=== PATIENT | male | born 1955 | race Caucasian/White ===

== ENCOUNTER → 2018-06-20 10:16 | Outpatient (CLI) | payer BC, SELFPAY ==
[2018-06-15 12:40] VITALS: BMI 39.7
--- NOTE | 2018-06-20 10:19 | US_ITS ---
STUDY: SUPERFICIAL ULTRASOUND - BILATERAL FLANKS. REASON FOR EXAM: Male, 63 years old. Masses. TECHNIQUE: A superficial ultrasound was performed with real-time and static mott-scale imaging. COMPARISON: None. FINDINGS: Real-time sonographic imaging of the bilateral flanks demonstrates multiple subcutaneous mildly echogenic masses in the appearance of sebaceous cysts. The largest on the right measures 1 x 1 x 0.4 cm. The largest on the left measures 0.5 x 0.9 x 0.4 cm. US/Other Unlisted US Procedure IMPRESSION: Multiple subcutaneous echogenic masses most suspicious for sebaceous cyst. Electronically Signed: Jeffrey Wilhelm DO at 22:34 EST Tel [phone], Service support ,
--- OUTSIDE RECORDS SUMMARY | 2018-08-06 10:32 | XMS RPT_ITS ---
:1955 Author Organization OHIP Support Name Relationship Address Phone [employer] Unavailable [phone] + [place] [address] WINDY CLARK Unavailable [address] + [place] [address] [place] Unavailable [address] + [place] [phone] [employer] Unavailable [address] + [place] [phone] WINDY CLARK Unavailable [address] + [place] [address] [place] Unavailable [address] + [place] [phone] [employer] Unavailable [address] + [place] [address] WINDY CLARK Unavailable [address] + [place] [phone] [place] Unavailable [address] + [place] [address] [employer] Unavailable [address] + [place] [address] WINDY CLARK Unavailable [address] + [place] [address] [place] Unavailable [address] + [place] [address] [employer] Unavailable [address] + [place] [address] WINDY CLARK Unavailable [address] + [place] [address] [place] Unavailable [address] + [place] [phone] [employer] Unavailable [address] + [place] [address] [employer] Un[address] + [place] [address] [place] Unavailable [address] + [place] [address] WINDY CLARK Unavailable [address] + [place] [address] NOT GIVEN Unavailable Unavailable Unavailable [place] Unavailable [address] Unavailable [place], [place] [phone] WINDY CLARK Unavailable [address] + [place] [address] NOT GIVEN Unavailable Unavailable Unavailable [place] Unavailable [address] Unavailable [place], [place] [id number] Care Team Providers Name Role Phone ERICA BHAKTA Admitting Unavailable VACCERICA MCLEOD Attending Unavailable ERICA BHAKTA Primary Care Unavailable ANA GERARDO MD Consulting Unavailable PROVIDER, UNKNOWN Consulting Unavailable PROVIDER, UNKNOWN Consulting Unavailable PROVIDER, UNKNOWN Consulting Unavailable DEMETRIUS, DR MOHSEN Hernandez Admitting Unavailable ROMO, DR MOHSEN Hernandez Attending Unavailable VELAZQUEZ, MAHI J Referring Unavailable ROMO, DR MOHSEN Hernandez Primary Care Unavailable VELAZQUEZ, MAHI J Consulting Unavailable PROVIDER, UNKNOWN Consulting Unavailable CalJacky vigil Attending Unavailable Calabretta, Jacky Referring Unavailable VELAZQUEZ, MAHI Primary Care Unavailable Calabrkenzie, Jacky Attending Unavailable Calabretta, Jacky Referring Unavailable VELAZQUEZ, MAHI Primary Care Unavailable Calabrkenize Jacky Consulting Unavailable Calabrkenzie, Jacky Attending Unavailable VELAZQUEZ, MAHI Referring Unavailable Calabretta, Jacky Attending Unavailable Calabretta, Jacky Referring Unavailable VELAZQUEZ, MAHI Primary Care Unavailable Calabretta, Jacky Attending Unavailable VELAZQUEZ, MAHI Referring Unavailable MoodispawJeremiah Attending Unavailable Calabretta, Jacky Referring Unavailable PROBLEMS PROBLEMS DATE TYPE CONDITION / CODE ATTENDING STATUS SOURCE 07/06/2018 Unknown K42.9 - Umbilical Calabretta, Active Teresa hernia without Jacky [facility] obstruction or Hospital gangrene / Repository K42.9(ICD-10) 07/19/2018 Unknown Z01.810 - Encounter Moodispaw, Active Teresa for preprocedural [facility] examination / Repository Z01.810(ICD-10) 06/15/2018 Unknown R19.00 - Jolene, Active Bandana Intra-abdominal and [facility] pelvic swelling, Hospital mass and lump, Repository unspecified site / R19.00(ICD-10) 06/15/2018 Unknown R22.9 - Localized Calabretta, Active Bandana swelling, mass and [facility] lump, unspecified / Hospital R22.9(ICD-10) Repository 09/28/2017 Admitting Pain in right leg / VACCARIELLO, Active Dandy Pomerene Diagnosis W32159(ICD-10) [facility] Repository 09/28/2017 Principle Pain in right leg / VACCARIELLO, Active Dandy Pomerene Diagnosis W77548(ICD-10) [facility] Repository PROCEDURES PROCEDURES No Procedure Records FoundRESULTS RESULTS SURGERY VISIT REPORT Observed: 07/13/2018 Status: F Source: [place] 2:39 PM [facility] REPOSITORY [facility] [address] [place] [address]. [address] [place] [address] OFFICE VISIT Date of Service: 07/13/18 MR#: [id number] Acct: [id number] Name: CHARLENE LAKE Rep #: [id number] : 1955 Provider: Jacky Fernández MD Age/Sex: 63/M Location: [facility] Status: Signed Intake Intake Visit Reasons: 1 WK F/U Hernia Surgery AND Lipoma removal 07/06 Charge Lpn Required: No Is patient in pain?: No Allergies No Known Allergies Allergy (Verified 07/13/18 14:20) Medications aspirin 81 mg tablet,delayed release 81 mg PO DAILY 06/15/18 [History Confirmed 07/13/18] omeprazole magnesium 20 mg tablet,delayed release 20 mg PO DAILY 06/15/18 [History Confirmed 07/13/18] L.acidoph,Paracasei, B.lactis [Probiotic] 1 ea PO BID 06/29/18 [History Confirmed 07/13/18] Subjective Details: Patient is doing well after surgery. He has no pain at his umbilical site or his flank excision sites Objective Details: There is no bulging at the umbilicus. The patient has ecchymosis at all of his incisions with no erythema or drainage from the incisions. Assessment AND Plan Problems 1. 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 Umbilical hernia without obstruction or gangrene K42.9 Plan 1. Patient's umbilical hernia appears to be resolved with no bulging. Incisions are healing well. The patient's flank lesions came back as lipomas. The patient will return after he is fully healed if any of his remaining lipomas are bothering him and these will be excised in the office. 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 Umbilical hernia without obstruction or gangrene K42.9 07/13/18 1439 <Electronically signed by Jacky Fernández MD> Date Jacky Fernández MD Cosign Signature: Date (if applicable) CC: SHALINI VELAZQUEZ 12 LEAD ELECTROCARDIOGRAM Observed: 07/10/2018 Status: F Source: [place] 1:52 PM [facility] REPOSITORY [facility] Cardiovascular Services [address] [place] [address] 12 Lead EKG 07/06/18 0609 MR#: [id number] Acct: [id number] Name: CHARLENE LAKE Rep #: [id number] : 1955 63 From: Jeremiah Salazar MD Attending Dr: Jacky Fernández MD Status: [facility] Ordering Dr: Babar العراقي MD Date: 07/06/18 Location: [facility] Sex: M C Admitted: Test Reason : PRE OP Blood Pressure : / mmHG Vent. Rate : 065 BPM Atrial Rate : 065 BPM P-R Int : 188 ms QRS Dur : 082 ms QT Int : 384 ms P-R-T Axes : -05 017 023 degrees QTc Int : 399 ms Normal sinus rhythm Normal ECG Confirmed by MARIE TOMLIN, JEREMIAH ([id number]), editorial project manager JUD ORTIZ ([id number]) on 07/10/2018 1:51:37 PM Referred By: Jacky Fernández Confirmed By:JEREMIAH SALAZAR MD 07/10/18 1351 Date Jeremiah Salazar MD CC: SHALINI VELAZQUEZ; Jacky Fernández MD; Babar العراقي MD Signed DISCHARGE INSTRUCTION Observed: 07/06/2018 Status: F Source: [place] 9:06 AM [facility] REPOSITORY [facility] Medical Records Department [address] [place] [address] [place] [address] Instructions for Home/Discharge Instructions 07/06/18 0904 MR#: [id number] Acct: [id number] Name: CHARLENE LAKE Rep #: [id number] : 1955 63 From: Jacky Fernández MD PCP: SHALINI ADLER Status: REG [place] Discharge Diet: Light diet - advance as tolerated Discharge Activity: Return to Normal Activity, May Not Drive - for 2-3 days or while taking narcotic pain meds., May Shower - with the bandage in place 1-2 days after surgery. Lifting Restrictions: 20 pounds for 6 weeks. Additional Activity Instructions:: Climbing stairs is fine, walking is encouraged. Sitting in bed may be uncomfortable. Sitting up using your lateral muscles (sitting up sideways) is usually more comfortable. Do not drive, work heavy equipment of sign legal documents for 24 hours. Pain medications may cause nausea, you should typically eat light foods as you take your pain medications. Pain medications may also cause constipation. If you have difficulty with this, discuss with your doctor. Call your doctor if your incision/area has: Continuous Slow Oozing, Sudden Increased Bleeding, Increased Pain/ Swelling, Increased Redness, Foul Smelling Discharge Call your doctor if you observe: Fever of 101 or Higher Suture Line Care: Avoid Pulling/Pushing, Avoid Pinching/Bending Change Dressing in (Days):: 2 - Leave steri-strips for 1 week. May protect with a guaze bandaid. Cleanse incision/area with: Keep Dressing Clean AND Dry Additional Instructions: Resume aspirin Tuesday Allergies/Adverse Reactions: Allergies No Known Allergies Allergy (Unverified 06/29/18 13:03) Medications to take at Discharge aspirin 81 mg tablet,delayed release 81 mg PO DAILY 06/15/18 omeprazole magnesium 20 mg tablet,delayed release 20 mg PO DAILY 06/15/18 L.acidoph,Paracasei, B.lactis [Probiotic] 1 each PO BID 06/29/18 Oxycodone HCl/Acetaminophen [Percocet 5/325] 1 - 2 tablet PO Q4H PRN PRN 7 Days #30 tablet 07/06/18 The following prescriptions were given: Oxycodone HCl/Acetaminophen [Percocet 5/325] 1 - 2 tablet PO Q4H PRN PRN 7 Days #30 tablet PRN Reason: Pain Primary Care Physician: aMhi Velazquez PA [Primary Care Provider] - Test Results: Test results from this visit will be discussed in further detail at your follow-up appointment, if applicable. 07/06/18905 <Electronically signed by Jacky Fernández MD> Date Jacky Fernández MD CC: SHALINI VELAZQUEZ Signed OPERATIVE REPORT Observed: 07/06/2018 Status: F Source: [place] 9:03 AM [facility] REPOSITORY [facility] Medical Records Department [address] [place] [address] Operative Report 07/06/18 0856 MR#: [id number] Acct: [id number] Name: CHARLENE LAKE Rep #: [id number] : 1955 63 From: Jacky Fernández MD PCP: SHALINI ADLER Status: REG [facility] Y Location: [place] [address]- Problem List (1) Flank lipoma Status: Acute (2) Umbilical hernia without obstruction or gangrene Status: Acute Report of Operation Date of Procedure: 07/06/18 Pre-Operative Diagnosis: 1. Umbilical hernia. 2. Right flank mass with pain. 3. 2 left flank masses with pain Post-Operative Diagnosis: 1. Umbilical hernia. 2. Right flank lipoma. 3. Left flank lipoma x2 Surgery/Procedure Performed:: 1. Umbilical hernia repair with mesh. 2. Right flank lipoma excision. 3. 2 left flank lipoma excisions Description of Surgical Findings:: Patient had a right flank lipoma which was 1 cm in diameter. Patient had 2 left flank lipomas. One was 1.5 cm diameter in its largest dimension the other one was 1 cm in its largest dimension. Specimen's removed: 1. Right flank mass. 2. 2 left flank masses Description of Procedure: The patient was brought back to the operating room and general anesthesia was induced. The patient's umbilicus was prepped in the usual sterile fashion. Next a curvilinear incision marking was made inferior to his umbilicus and this area was anesthetized with Marcaine. Next an incision was made and this was deepened to the umbilical stalk. A Gail clamp was used to surround the umbilical stalk and this was sharply excised from the underlying hernia sac. The hernia sac was entered and dissected free from the surrounding fascia. Hernia sac was reduced. The preperitoneal plane was identified and developed. This was developed circumferentially bluntly the index finger. Next the peritoneal defect was inspected and closed with a running 3-0 Vicryl suture. The hernia sac was reduced and next the preperitoneal space was inspected and there was good hemostasis with no bleeding. The defect was measured and a 6.[address] mesh was selected. This was inserted into the preperitoneal space and the tails were sutured to the anterior fascia using 0 PDS sutures. Laterally the mesh was tacked to the anterior fascia using 0 PDS sutures as well. The fascia was then reapproximated with 0 PDS sutures in a horizontal fashion. The area was irrigated and suctioned dry. The umbilical stalk was re-sutured to the anterior fascia using 2 3-0 Vicryl sutures. The incision was then reapproximated with interrupted 3-0 Vicryl sutures in a running subcuticular 4-0 Monocryl suture. Steri-Strips and a cotton ball and bandage were then applied. The patient tolerated this portion well. Next attention was paid to his right flank. This area was inspected with the ultrasound and his lesion was identified under ultrasound and a marking was made. The area was then prepped and this incision site was anesthetized Marcaine. Next an incision was made and this was deepened to the subcutaneous tissue. A small lipoma was identified and excised sharply. The incision was closed with interrupted 3-0 Vicryl suture and Steri-Strips. Attention was then paid to the left flank. The patient had 2 masses in the left flank that were bothering him. Ultrasound was used to localize both of these lesions. First the most lateral lesion was identified and incision site was marked and anesthetized with Marcaine. An incision was then made and this was deepened to subcutaneous tissue. A large lipoma was identified and removed sharply. This measured about 1.5 cm. Hemostasis was obtained with electrocautery and the incision was closed with 2 interrupted 3-0 Vicryl sutures as well as Steri-Strips and a bandage. Next attention was taken to the more anterior lesion. In the same fashion it was identified and an area was anesthetized and an incision was made and a small lipoma measuring 1 cm in diameter was removed sharply. Hemostasis was obtained electrocautery and the incision was closed with 2 interrupted 3-0 Vicryl sutures as well as Steri-Strips and bandages. The patient tolerated all these procedures well and was taken back to PACU in stable condition. Grafts/Implants Used: 6.4 cm ventralex mesh 07/06/18902 <Electronically signed by Jacky Fernández MD> Date Jacky Fernández MD CC: SHALINI VELAZQUEZ; Jacky Fernández MD Signed CYST Observed: 07/06/2018 Status: F Source: [place] 7:30 AM [facility] REPOSITORY Patient: CHARLENE LAKE : 1955 (63/M) Acct Num: [id number] Phys: Jacky Fernández MD Unit Num: [id number] Loc: [facility] Specimen: [id number] Received: 07/06/18 - 1131 Spec Type: Cyst TISSUES 1 TISSUES: A. CYST B. CYST GROSS DESCRIPTION A - Received in fixative is one container labeled with the patient's name and designated right flank. The specimen consists of three irregular fragments of yellow fatty tissue that in aggregate measure 2.5 x 1 x 0.3 cm. The specimen is totally submitted in one cassette. B - Received in fixative is one container labeled with the patient's name and designated left flank. The specimen consists of multiple irregular fragments of craft-yellow fibrofatty tissue that in aggregate measure 2.5 x 2 x 0.3 cm. The specimen is sectioned and totally submitted in one cassette. / AM:nuha 07/06/18 TC:1 CPT: 35418 x2 HEADER OPERATION: Umbilical hernia repair with mesh PRE-OP DIAGNOSIS: Umbilical hernia without obstruction and gangrene TISSUE SUBMITTED: A - Sebaceous cyst right flank, B - Sebaceous cyst left flank MICROSCOPIC DESCRIPTION Slides are reviewed. MICROSCOPIC DIAGNOSIS A. Sebaceous cyst of right flank, excision: Mature adipose tissue consistent with angiolipoma. B. Sebaceous cyst of left flank, excision: Mature adipose tissue consistent with angiolipoma. AM:nuha 07/07/18 Signed Jose Bello, DO 07/07/18 <signature on file> Performed By: #### PCYST #### [facility] [address] [place], [address] BASIC METABOLIC Collected: 07/06/2018 Status: F Source: [place] PROFILE ([facility]) 6:04 AM [facility] REPOSITORY Order Comment: Reason for Laboratory Test PREOP TYPE CODE TESTS RESULT OUT OF RANGE REFERENCE UNITS LAB L501.0100 74-106 mg/dL High GLU 122 Result Comment: Fasting Glucose result from 100 to 125 mg/dL suggests IMPAIRED HOMEOSTASIS per A.D.A. criteria. Please note revised GLUCOSE reference range effective 2017. LAB L501.1000 7-18 mg/dL Normal BUN 16 LAB L501.1100 0.70-1.30 mg/dL Low CREAT,SERUM 0.59 Result Comment: The validity of the calculated GFR AND GFRAA in patients over 70 years has not been determined. Clinical correlation is essential. LAB L501.1110 >60 mL/min Normal EST GFR 147 Result Comment: Non- GFR Calc LAB L501.1115 >60 mL/min Normal EST GFR - AA 178 Result Comment: GFR Calc LAB L501.1255 ml/min Normal Estimated CRCL 117.15 LAB L501.1300 10-20 RATIO High BUN/CRE 26.9 LAB L501.2200 8.5-10 mg/dL Low .1 CA 8.3 LAB L501.5300 136-14 mmol/L 5 NA Normal 139 LAB L501.5600 3.5-5. mmol/L 1 K Normal 3.9 LAB L501.5900 98-107 mmol/L CL Normal 107 LAB L501.6100 21.0-3 mmol/L 2.0 CO2 Normal 25.0 LAB L501.6200 5-15 GAP Normal 7 Performed By: #### L500.2500 #### [facility] [address] [place], [place], [id number] CBC-COMPLETE BLOOD CNT Collected: 07/06/2018 Status: F Source: [place] NO DIFF 6:04 AM [facility] REPOSITORY Order Comment: Reason for Laboratory Test PREOP TYPE CODE TESTS RESULT OUT OF RANGE REFERENCE UNITS LAB L100.1000 4.4-11.0 K/mm3 Low WBC 4.2 LAB L100.1200 4.6-6.2 M/mm3 Low RBC 4.59 LAB L100.1300 13.0-16.5 g/dl Normal HGB 14.7 LAB L100.1400 40-54 % Normal HCT 44.0 LAB L100.1500 80-94 fL High MCV 95.9 LAB L100.1600 27.0-32.0 pg Normal MCH 32.0 LAB L100.1700 32-36 g/gl Normal MCHC 33.4 LAB L100.1810 11.6-14.6 % Normal RDW CV 12.4 LAB L100.1820 35.1-43.9 fl Normal RDW SD 42.6 LAB L100.1900 150-450 K/mm3 Normal PLT 181 LAB L100.2000 6.2-12.0 fl Normal MPV 10.1 Performed By: #### L100.0500 #### [facility] [address] [place], [place], [id number] OTHER UNLISTED US Observed: 06/20/2018 Status: F Source: [place] PROCEDURE 10:19 AM [facility] REPOSITORY [facility] Imaging Services [address] [place] [address] Other Unlisted US Procedure MR#: [id number] Acct: [id number] Name: CHARLENE LAKE Rep #: [id number] : 1955 M 63 From: Jeffrey Wilhelm DO PCP: SHALINI ADLER Status: REG CLI Study: Other Unlisted US Procedure Date of Exam: 06/20/18 Exam# [id number] Ordering Dr: Jacky Fernández MD STUDY: SUPERFICIAL ULTRASOUND - BILATERAL FLANKS. REASON FOR EXAM: Male, 63 years old. Masses. TECHNIQUE: A superficial ultrasound was performed with real- time and static mott-scale imaging. COMPARISON: None. FINDINGS: Real-time sonographic imaging of the bilateral flanks demonstrates multiple subcutaneous mildly echogenic masses in the appearance of sebaceous cysts. The largest on the right measures 1 x 1 x 0.4 cm. The largest on the left measures 0.5 x 0.9 x 0.4 cm. US/Other Unlisted US Procedure IMPRESSION: Multiple subcutaneous echogenic masses most suspicious for sebaceous cyst. Electronically Signed: Jeffrey Wilhelm DO at 22:34 EST Tel [phone], Service support , CC: SHALINI VELAZQUEZ; Jacky Fernández MD Window Shade Installer: Signed SURGERY VISIT REPORT Observed: 06/15/2018 Status: F Source: [place] 1:16 PM [facility] REPOSITORY [facility] [address] [place] [address] OFFICE VISIT Date of Service: 06/15/18 MR#: [id number] Acct: [id number] Name: CHARLENE LAKE Rep #: [id number] : 1955 Provider: Jacky Fernández MD Age/Sex: 63/M Location: [facility] Status: Signed Intake Vital Signs06/15/18 Height 5 ft 6 in Intake Visit Reasons: Umbilical Hernia and multi skin nodules Charge Lpn Required: No Accompanied by: Family / Other Is patient in pain?: No Allergies No Known Allergies Allergy (Unverified 06/15/18 12:35) Medications aspirin 81 mg tablet,delayed release 81 mg PO DAILY 06/15/18 [History Confirmed 06/15/18] omeprazole magnesium 20 mg tablet,delayed release 20 mg PO DAILY 06/15/18 [History Confirmed 06/15/18] PFSH Medical History Acid reflux (Acute) history of broken jaw (Acute) Surgical History History of tonsillectomy (Acute) History of varicose vein ligation and stripping (Acute) Family History Mother Diabetes Hypertension Father ulcers Social History Smoking Status: Former smoker how long ago did patient quit smokin years alcohol intake: current alcohol intake frequency: a few times a week Alcohol type: wine substance use type: does not use HPI HPI HPI: CHARLENE LAKE, is a 63 M who presents to the office today for umbilical hernia and subcutaneous nodules. The patient reports he has had an umbilical hernia for years and it is growing. It is becoming more tender. He denies any nausea vomiting or inability to go to the bathroom. The patient also notes that he has subcutaneous nodules that are very painful. These nodules are on bilateral flanks and in a linear fashion. ROS General General: No weight change or fatigue Skin Additional Details: Subcutaneous lesions in bilateral flanks Cardio Cardiovascular: No murmur, pacemaker, heart disease, atrial fibrillation, high blood pressure, heart attack, heart stent, palpitations, shortness of breat with exertion or chest pain Psych Psychiatric: No depression or anxiety Resp Respiratory: No shortness of breath, No sleep apnea, No cough, No COPD, No asthma, No emphysema, No wheezing Gastro Gastrointestinal: No abdominal pain, No nausea or vomiting, No diarrhea, No constipation, No blood in stool, No acid reflux, No hemorrhoids, No ulcers, No gallbladder problem, No black,tarry stools Trevin Hematologic: Yes blood thinners, Yes blood clots Exam Const General: cooperative Orientation: alert, oriented x3 Resp Effort AND Inspection: normal respiratory effort Auscultation: clear to auscultation bilaterally Cardio Rate: regular rate Rhythm: regular rhythm Heart Sounds: no murmurs GI Inspection: non-distended Palpation: soft, nontender, hernia umbilical Skin Other: Patient has subcutaneous lesions which are in a linear fashion in the subcostal area of both flanks. These lesions vary in size but they are very tender. There are no skin changes. These appear minimally mobile. Assessment AND Plan 1. Umbilical hernia without obstruction and without gangrene K42.9 Plan 1. The patient has a large umbilical hernia which is reducible. It is tender to the touch but there are no skin changes. 2. I explained hernia repair with mesh. I explained the risks including but not limited to bleeding, infection, injury to underlying organs. I also explained that he would have 4-6 weeks of no lifting over 20 pounds after surgery and the risk of recurrence. I have asked him to stop his aspirin 5 days prior to procedure. 2. Multiple skin nodules R22.9 Plan 1. The patient has several nodules in the subcutaneous tissue which vary in size and are not very easily mobile. They are all extremely tender to the touch. There are no skin changes in the overlying skin. I am unsure that these are lipomas as they are in a linear fashion and bilateral. There are no other lipomas except for these 2 straight lines bilaterally. 2. I will obtain an ultrasound of these areas to better differentiate the soft tissue masses. If they appear to be simple lipomas I will remove his largest ones during his hernia repair. If they appear to be anything more complex I would refer him to a plastic surgeon for soft tissue resection. There is a chance these may be schwannomas or neuromas. There is also chance of soft tissue tumor. Jacky Fernández MD Pager: [facility] [address] [place] [address], [address] [place] [address] Office: Plan Detail Other Orders Orders: Coding Level of Care Code Off vis,new,level 3 Diagnoses Umbilical hernia without obstruction and without gangrene K42.9 Obstruction and gangrene presence: without obstruction or gangrene Multiple skin nodules R22.9 06/15/18 1316 <Electronically signed by Jacky Fernández MD> Date Jacky Ramirez Signature: Date (if applicable) CC: SHALINI VELAZQUEZ EMERGENCY REPORT Observed: 10/13/2017 Status: F [facility] ROOM REPORT NAME ACCOUNT SEX AGE ADMIT DISCHARGE PT MED. RECORD# NUMBER DATE DATE TYPE CHARLENE LAKE [id number] M 62 10/02/17 10/02/17 3 E [address] ROOM: ER DATE OF : 1955 DICTATING PHYSICIAN: Mohsen Romo CHIEF COMPLAINT: Leg pain. HISTORY OF PRESENT ILLNESS: The patient states that he has been having some pain to his right lower leg over the past perhaps 2 to 3 weeks. He states that it was worse when he would get up and walk and move on it. He did not recall any specific injury or trauma, though does recall that it seemed to start after he slipped on some ice several weeks ago. It has been gradually getting slightly more bothersome. He saw Dr. Bhakta in the office this past week who did a blood test to rule out blood clot. He states that was okay. This morning as he was stepping to climb up into a van, he had a sudden onset of severe pain to his leg. He felt somewhat of a pop or a crack to his lower leg. He has really been unable to weight bear since because of pain. He has not noticed any bruising or swelling. No numbness or tingling. It seems to be diffuse to the lower leg, somewhat radiating into his foot. No neurologic symptoms. He did not fall on it or have any direct trauma to it this morning. PAST MEDICAL HISTORY: Negative for other medical problems. He does have a history of DVT in the past. PAST SURGICAL HISTORY: No previous surgeries other than kidney stone removal. MEDICATIONS: He takes no medications regularly. He has been taking ibuprofen quite frequently for the pain. SOCIAL HISTORY: The patient is Holiness. He lives at home. He does not smoke or drink alcohol. PHYSICAL EXAMINATION: This is a 62-year-old mildly obese male who is alert and appropriate. He is pleasant and does not appear toxic or in acute distress. His skin is pink, warm and dry. Vital signs are essentially all normal. Blood pressure is mildly elevated at 140/92. Exam is focused to the right lower extremity. Gross exam to the left reveals no redness, bruising or swelling. He is able to move the leg diffusely. He does not seem to have any tenderness with palpation in any muscular areas. Achilles tendon is intact and nontender. Palpation over the tibia diffusely does reveal a fairly significant bony area of tenderness to the mid distal tibia, though there is no redness or bruising noted. Good peripheral pulses. Good capillary refill. Normal neurologic examination. No joint effusions. No tenderness at the joint or any leg or thigh Page 1 of 2 [facility] Emergency Room Report swelling. DIAGNOSTIC DATA: Right tib/fib x-ray was obtained and this did show a couple areas of some periosteal elevation to the tibia, certainly at the mid distal aspect of the tibia where his point tenderness is. It almost seems to be perhaps a very subtle lucency at this area that could be consistent with a very minimal fracture. IMPRESSION: I feel that this most likely is a stress fracture going on the history and exam and x-ray findings. EMERGENCY DEPARTMENT COURSE AND TREATMENT: I discussed management with him. He does have crutches at home and I recommended him using those with no weight bearing. I did give him some [place] to take for pain as needed. DIAGNOSIS: Right leg pain, probable tibial stress fracture. PLAN/DISPOSITION: He is to follow up with Orthopedics this week. D: Mohsen Romo MD TD: 10/02/17 12:56 JOB #: [id number] Transcribed by: kenia Electronically signed by: ARLEEN Romo M.D. 10/13/17 07:08 Page 2 of 2 [facility] Emergency Room Report TIBIA-FIBULA RT Observed: 10/02/2017 Status: F Source: DANDY MELACARLOS 9:21 AM [place] [address] Patient: [facility]. Phone#: : [phone] Age: 62 Gender: M Pt. Type: ER Account: [id number] Location: 052 Ordering: MOHSEN ROMO Exam Date: 10/02/2017/9:12 Family Phys: MAHI VELAZQUEZ Charge Code: 167846 Physician: [place] Order #: [id number] DLP Dose#: PROCEDURE: X-RAY TIB FIB RT 2 VIEWS COMPARISON: None. INDICATIONS: Leg pain FINDINGS: BONES: The anterior proximal third of the tibia there is cortical lucency and periosteal elevation. SOFT TISSUES: Negative. No visible soft tissue swelling. EFFUSION: None visible. OTHER: Varicosities are noted in the medial calf. CONCLUSION: Probable stress fracture proximal third of the tibia. Dictated by: Renetta Bolanos MD on 10/02/2017 at 20:48 Approved by: Renetta Bolanos MD on 10/02/2017 at 20:48 D-DIMER, QUANTITATIVE Collected: 09/28/2017 Status: F Source: [facility] 3:44 PM [facility] REPOSITORY TYPE CODE TESTS RESULT OUT OF REFERENCE UNITS RANGE LAB D-DIMER, QUANTITATI VE(LOINC) D-DIMER, QUANTITATIVE Result Comment: QUANT D-DIMER LAB D-DIMER QUANT(LOINC) 0 - 230 ng/ml D-DIMER QUANT 205 Performed By: #### [id number] #### [facility],[address] [place] [address] ALLERGIES ALLERGIES DATE TYPE / CODE NAME / CODE REACTION SEVERITY SOURCE 07/13/2018 Drug No Known Unknown [facility] Allergy/326255243(S Allergies/F0019 [facility]OM[place] [facility]) [address](RXNORM) Hospital Repository Miscellaneous No Known Drug Moderate [facility] Allergy/660674131(S Allergies (Severity [facility] NOMED CT) Modifier) Hospital (Qualifier Repository Value) ENCOUNTERS ENCOUNTERS ADMIT/DISCHARGE ACCOUNT ADMITTING ENCOUNTER LOCATION SOURCE NUMBER CLASS 07/13/2018/ [id number] Ambulatory BMSBuilding:B Teresa 9 3 [place].[facility] Repository 07/06/2018 [id number] Ambulatory BMSBuilding:B Teresa 6 MS.CF.[facility] Repository 07/06/2018/ [id number] Ambulatory Teresa [facility] 8 6 [facility] ing:SDCRoom: Repository AC06 07/06/2018 [id number] Ambulatory BMSBuilding:W Teresa 3 [facility] Repository 06/20/2018 [id number] Ambulatory [place] Teresa 2 [facility] ing:US Repository 06/15/2018/ [id number] Ambulatory BMSBuilding:B Teresa 8 3 MS.[facility] Repository 10/02/2017/ [id number] DR MOHSEN ROMO Emergency Buildin[address] [place] [address] C oom: ERBed: [facility] Repository 09/28/2017/ [id number] YONY, Ambulatory [facility] 8 [facility] Repository PAYERS PAYERS ENCOUNTER GUARANTOR PAYER SUBSCRIBER SOURCE 07/13/2018 CHARLENE David Primary CHARLENE David [facility] [id number] TR Insurance:ANTHEMPolicy TROYERDOB: [address], Number: [id number] [address]Obo: [id number] Repository Date:2510-96-26LS [address]JBFQA, [place] [address]JL: 07/13/2018 Secondary NOT GIVENUNK [facility] Insurance:SELF PAY [facility] Number: Effective Repository Date:2018-07-10 07/06/2018 CHARLENE David Primary CHARLENE Gomezoster [id number] TR Insurance:ANTHEMPolicy TROYERDOB: [address], Number: [id number] Hospital [address]Ezg: [id number] Repository Date:7702-01-54QV [address], [place] [address]KC: 07/06/2018 Secondary NOT GIVENUNK [place] Insurance:SELF PAY [facility] Number: Effective Repository Date:2018-07-06 07/06/2018 CHARLNEE David Primary CHARLENE David Teresa [id number] TR Insurance:ANTHEMPolicy [facility]: [address], Number: [id number] Hospital [address]Uaq: [id number] Repository Date:7082-39-58OH [address] () [id number] [place] [address]FQ: 07/06/2018 Secondary NOT GIVENUNK [place] Insurance:SELF PAY [facility] Number: Effective Repository Date:2018-06-15 07/06/2018 CHARLENE E Primary CHARLENE E Teresa [id number] TR Insurance:ANTHEMPolicy TROYERDOB: [address], Number: [id number] Hospital [address]Yjg: [id number] Repository Date:8528-28-63QP [address] () [id number] [address]ZR: 07/06/2018 Secondary NOT GIVENUNK [place] Insurance:SELF PAY [facility] Number: Effective Repository Date:2018-07-06 06/20/2018 CHARLENE E Primary CHARLENE E Teresa [id number] TR Insurance:ANTHEMPolicy TROYERDOB: [address], Number: [id number] Hospital [address]Cro: [id number] Repository Date:5329-99-98OZ [address] () [id number] [place] [address]NI: 06/20/2018 Secondary NOT GIVENUNK Teresa Insurance:SELF PAY [facility] Number: Effective Repository Date:2018-06-15 06/15/2018 CHARLENE Primary CHARLENE TROYERDOB: Teresa [id number] TR Insurance:ANTHEMPolicy [id number], Number: [facility] [address]Ciu: [id number] Repository Date:5211-90-21BD [address] () [id number] [address]TB: 06/15/2018 Secondary NOT GIVENUNK Teresa Insurance:SELF PAY [facility] Number: Effective Repository Date:2018-06-15 10/02/2017 CHARLENE E Primary Insurance:PRICE Asencio EFREMCARMELLADOB: [address]: [facility] [id number] [facility] [address] Number: [address] [facility] [address] Repository [address] [place] [address], [id number] [address] [place] [address] Date:Plan Name:[facility] [id number]: () 09/28/2017 CHARLENE David Primary Insurance:PRICE Morrisnoreen TOPETEYERDOB: [address]: [facility] [id number] [facility] [id number] [facility] [address] Number: [address] [facility] [address] Repository [address] [place] [address] [id number] [address] [place] [address] Date:Plan Name:[facility] [id number]: ()
== END ==
PROVIDERS: Family Provider Physician Assistant; PCP Physician Assistant; Referring Provider Surgery; Visit Provider Surgery
DX: R19.00 Intra-abdominal and pelvic swelling, mass and lump, unspecified site (principal)
CPT/HCPCS: 76999

== ENCOUNTER 2018-07-06 05:47 | Day surgery (SDC) | payer BC, SELFPAY ==
[2018-06-15 12:40] VITALS: BMI 39.7
[2018-07-06] VITALS (7 sets, daily range): BP systolic 113–148; BP diastolic 75–92; PULSE 61–81; RESP 16–18; TEMP 36.2–36.6; O2SAT 93–98; BMI 39.2
--- NOTE | 2018-07-06 06:21 | EKG12_ITS ---
Test Reason : PRE OP Blood Pressure : / mmHG Vent. Rate : 065 BPM Atrial Rate : 065 BPM P-R Int : 188 ms QRS Dur : 082 ms QT Int : 384 ms P-R-T Axes : -05 017 023 degrees QTc Int : 399 ms Normal sinus rhythm Normal ECG Confirmed by MARIE TOMLIN, ANGELO ([id number]), order editor JUD ORTIZ ([id number] on 07/10/2018 1:51:37 PM Referred By: Jacky Fernández Confirmed By:ANGELO SALAZAR MD
[2018-07-06 06:34] LABS: Hemoglobin 14.7 g/dl (13.0-16.5); Mean Corp Hgb Conc 33.4 g/gl (32-36); Mean Corpuscular Volume 95.9 fL (80-94); Mean Platelet Vol. 10.1 fl (6.2-12.0); Platelet Count 181 K/mm3 (150-450); RBC Distribution Width CV 12.4 % (11.6-14.6); RBC Distribution Width SD 42.6 fl (35.1-43.9); Red Blood Count 4.59 M/mm3 (4.6-6.2); White Blood Count 4.2 K/mm3 (4.4-11.0)
[2018-07-06 06:40] LABS: Anion Gap 7 (5-15); BUN 16 mg/dL (7-18); BUN/Creat Ratio 26.9 RATIO (10-20); Calcium,Total 8.3 mg/dL (8.5-10.1); Chloride 107 mmol/L (98-107); Creatinine, Serum 0.59 mg/dL (0.70-1.30); EST Glomerular Filtration Rate 147 mL/min (>60); Est Glom Filt Rate - Afr Amer 178 mL/min (>60); Estimated Creatinine Clearance 117.15 ml/min; Glucose 122 mg/dL (74-106); Potassium 3.9 mmol/L (3.5-5.1); Sodium Level 139 mmol/L (136-145)
[2018-07-06 06:42] LABS: Scan Indicated on CBC? Y/N NO
--- NOTE | 2018-07-06 07:30 | CYST_PTH ---
PATIENT: CHARLENE LAKE LOC: [facility] [place] U#:[id number] AGE/SX: 63/M ROOM: RE07/06/[address]: Dr. Jacky Fernández MD : [id number] BED: DIS: 07/06/2018 SPEC #: [id number] RECD: 07/06/18 11:31 STATUS: JOHANNE ISELA #: [id number] MELONIE: 07/06/18 07:[address]: Jacky Fernández DEPT: SURGICAL PATHOLOGY RECD BY: Luis Orellana ENTERED: 07/06/18 11:54 SP TYPE: Cyst OTHR DR: SHALINI Laura Tissues: A - CYST B - CYST Procedures: Surgery Specimen Level III HEADER OPERATION: Umbilical hernia repair with mesh PRE-OP DIAGNOSIS: Umbilical hernia without obstruction and gangrene TISSUE SUBMITTED: A - Sebaceous cyst right flank, B - Sebaceous cyst left flank MICROSCOPIC DIAGNOSIS A. Sebaceous cyst of right flank, excision: Mature adipose tissue consistent with angiolipoma. B. Sebaceous cyst of left flank, excision: Mature adipose tissue consistent with angiolipoma. AM:nuha 07/07/18 MICROSCOPIC DESCRIPTION Slides are reviewed. GROSS DESCRIPTION A - Received in fixative is one container labeled with the patient's name and designated right flank. The specimen consists of three irregular fragments of yellow fatty tissue that in aggregate measure 2.5 x 1 x 0.3 cm. The specimen is totally submitted in one cassette. B - Received in fixative is one container labeled with the patient's name and designated left flank. The specimen consists of multiple irregular fragments of craft-yellow fibrofatty tissue that in aggregate measure 2.5 x 2 x 0.3 cm. The specimen is sectioned and totally submitted in one cassette. / AM:nuha 07/06/18 TC:1 CPT: 45545 x2
[2018-07-06] MEDS: Cefazolin 2 GM in 0.9% Normal Saline 100 ML IV (07:35)
[2018-07-06] MEDS: Bupiv/Epi 0.5% Mpf 30 ML Vial (08:50)
--- NOTE | 2018-07-06 09:03 | OP.PCM_ITS ---
Problem List (1) Flank lipoma Status: Acute (2) Umbilical hernia without obstruction or gangrene Status: Acute Report of Operation Date of Procedure: 07/06/18 Pre-Operative Diagnosis: 1. Umbilical hernia. 2. Right flank mass with pain. 3. 2 left flank masses with pain Post-Operative Diagnosis: 1. Umbilical hernia. 2. Right flank lipoma. 3. Left flank lipoma x2 Surgery/Procedure Performed:: 1. Umbilical hernia repair with mesh. 2. Right flank lipoma excision. 3. 2 left flank lipoma excisions Description of Surgical Findings:: Patient had a right flank lipoma which was 1 cm in diameter. Patient had 2 left flank lipomas. One was 1.5 cm diameter in its largest dimension the other one was 1 cm in its largest dimension. Specimen's removed: 1. Right flank mass. 2. 2 left flank masses Description of Procedure: The patient was brought back to the operating room and general anesthesia was induced. The patient's umbilicus was prepped in the usual sterile fashion. Next a curvilinear incision marking was made inferior to his umbilicus and this area was anesthetized with Marcaine. Next an incision was made and this was deepened to the umbilical stalk. A Gail clamp was used to surround the umbilical stalk and this was sharply excised from the underlying hernia sac. The hernia sac was entered and dissected free from the surrounding fascia. Hernia sac was reduced. The preperitoneal plane was identified and developed. This was developed circumferentially bluntly the index finger. Next the peritoneal defect was inspected and closed with a running 3-0 Vicryl suture. The hernia sac was reduced and next the preperitoneal space was inspected and there was good hemostasis with no bleeding. The defect was measured and a 6.[address] mesh was selected. This was inserted into the preperitoneal space and the tails were sutured to the anterior fascia using 0 PDS sutures. Laterally the mesh was tacked to the anterior fascia using 0 PDS sutures as well. The fascia was then reapproximated with 0 PDS sutures in a horizontal fashion. The area was irrigated and suctioned dry. The umbilical stalk was re- sutured to the anterior fascia using 2 3-0 Vicryl sutures. The incision was then reapproximated with interrupted 3-0 Vicryl sutures in a running subcuticular 4-0 Monocryl suture. Steri-Strips and a cotton ball and bandage were then applied. The patient tolerated this portion well. Next attention was paid to his right flank. This area was inspected with the ultrasound and his lesion was identified under ultrasound and a marking was made. The area was then prepped and this incision site was anesthetized Marcaine. Next an incision was made and this was deepened to the subcutaneous tissue. A small lipoma was identified and excised sharply. The incision was closed with interrupted 3-0 Vicryl suture and Steri-Strips. Attention was then paid to the left flank. The patient had 2 masses in the left flank that were bothering him. Ultrasound was used to localize both of these lesions. First the most lateral lesion was identified and incision site was marked and anesthetized with Marcaine. An incision was then made and this was deepened to subcutaneous tissue. A large lipoma was identified and removed sharply. This measured about 1.5 cm. Hemostasis was obtained with electrocautery and the incision was closed with 2 interrupted 3-0 Vicryl sutures as well as Steri-Strips and a bandage. Next attention was taken to the more anterior lesion. In the same fashion it was identified and an area was anesthetized and an incision was made and a small lipoma measuring 1 cm in diameter was removed sharply. Hemostasis was obtained electrocautery and the incision was closed with 2 interrupted 3-0 Vicryl sutures as well as Steri- Strips and bandages. The patient tolerated all these procedures well and was taken back to PACU in stable condition. Grafts/Implants Used: 6.4 cm ventralex mesh
--- NOTE | 2018-07-06 09:06 | DCINST_ITS ---
Discharge Diet: Light diet - advance as tolerated Discharge Activity: Return to Normal Activity, May Not Drive - for 2-3 days or while taking narcotic pain meds., May Shower - with the bandage in place 1-2 days after surgery. Lifting Restrictions: 20 pounds for 6 weeks. Additional Activity Instructions:: Climbing stairs is fine, walking is encouraged. Sitting in bed may be uncomfortable. Sitting up using your lateral muscles (sitting up sideways) is usually more comfortable. Do not drive, work heavy equipment of sign legal documents for 24 hours. Pain medications may cause nausea, you should typically eat light foods as you take your pain medications. Pain medications may also cause constipation. If you have difficulty with this, discuss with your doctor. Call your doctor if your incision/area has: Continuous Slow Oozing, Sudden Increased Bleeding, Increased Pain/ Swelling, Increased Redness, Foul Smelling Discharge Call your doctor if you observe: Fever of 101 or Higher Suture Line Care: Avoid Pulling/Pushing, Avoid Pinching/Bending Change Dressing in (Days):: 2 - Leave steri-strips for 1 week. May protect with a guaze bandaid. Cleanse incision/area with: Keep Dressing Clean & Dry Additional Instructions: Resume aspirin Tuesday Allergies/Adverse Reactions: Allergies No Known Allergies Allergy (Unverified 06/29/18 13:03) Medications to take at Discharge aspirin 81 mg tablet,delayed release 81 mg PO DAILY 06/15/18 omeprazole magnesium 20 mg tablet,delayed release 20 mg PO DAILY 06/15/18 L.acidoph,Paracasei, B.lactis [Probiotic] 1 each PO BID 06/29/18 Oxycodone HCl/Acetaminophen [Percocet 5/325] 1 - 2 tablet PO Q4H PRN PRN 7 Days #30 tablet 07/06/18 The following prescriptions were given: Oxycodone HCl/Acetaminophen [Percocet 5/325] 1 - 2 tablet PO Q4H PRN PRN 7 Days #30 tablet PRN Reason: Pain Primary Care Physician: Patience Velazquez PA [Primary Care Provider] - Test Results: Test results from this visit will be discussed in further detail at your follow- up appointment, if applicable.
== END 2018-07-06 11:11 | disposition home or self-care (01) ==
LOC: SDC 05:53 → AC 05:55
PROVIDERS: Anesthesiology; Family Provider Physician Assistant; PCP Physician Assistant; Referring Provider Surgery; Visit Provider Surgery
DX: K42.9 Umbilical hernia without obstruction or gangrene (principal); D17.1 Benign lipomatous neoplasm of skin and subcutaneous tissue of trunk; K21.9 Gastro-esophageal reflux disease without esophagitis; Z86.718 Personal history of other venous thrombosis and embolism; Z79.82 Long term (current) use of aspirin; Z79.899 Other long term (current) drug therapy; Z87.891 Personal history of nicotine dependence
CPT/HCPCS: 11404; 49585; 36415; 80048; 85027; 88304; 93005; C1781; J7120

== ENCOUNTER 2021-12-09 08:37 | Day surgery (SDC) | payer MEDICARE, OTHER, SELFPAY ==
[2021-12-09] VITALS (7 sets, daily range): BP systolic 126–148; BP diastolic 58–80; PULSE 61–84; RESP 16–18; TEMP 36–36.9; O2SAT 92–95; BMI 39.0
--- NOTE | 2021-12-09 08:54 | PCM.HP.BLA ---
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 Is patient in pain?: No Allergies No Known Allergies Allergy (Verified 11/30/21 09:47) Medications aspirin 81 mg tablet,delayed release 81 mg PO DAILY 06/15/18 [History Confirmed 11/30/21] omeprazole magnesium 20 mg tablet,delayed release 20 mg PO DAILY 06/15/18 [History Confirmed 11/30/21] ascorbate calcium (vitamin C) 500 mg tablet 500 mg PO DAILY 11/30/21 [History Confirmed 11/30/21] cholecalciferol (vitamin D3) 50 mcg (2,000 unit) capsule 50 mcg PO DAILY 11/30/21 [History Confirmed 11/30/21] metformin 500 mg tablet 500 mg PO DAILY 11/30/21 [History Confirmed 11/30/21] vitamin B complex 1 tab PO DAILY 11/30/21 [History Confirmed 11/30/21] zinc acetate 25 mg (zinc) capsule 25 mg PO DAILY 11/30/21 [History Confirmed 11/30/21] [facility] Medical History (Updated 12/02/21 @ 08:[address] Jacky Fernández MD) Acid reflux history of broken jaw History of DVT (deep vein thrombosis) History of stomach ulcers Surgical History H/O umbilical hernia repair History of tonsillectomy History of varicose vein ligation and stripping Family History (Updated 11/30/21 @ 09:45 by Elisha Tuesday) Mother Diabetes Hypertension Heart disease Father ulcers Cancer Sister Breast cancer Diabetes Social History (Updated 11/30/21 @ 09:46 by Elisha Tuesday) Smoking Status: Former smoker Tobacco: How many years used: 30 how long ago did patient quit smokin years alcohol intake: current alcohol intake frequency: a few times a week Alcohol type: wine details: pt states takes a shot daily substance use type: does not use HPI HPI HPI: [facility], is a 66 M who presents to the office today for discomfort. Patient reports that in the rectal area he has a lot of tissue that does not reduce and is causing him discomfort and he is unable to keep himself clean. He denies any blood. ROS General General: Yes fatigue; No weight change, appetite, colon cancer, breast cancer or weakness HEENT HEENT: No difficulty swallowing, eye injury, eye surgery, swollen glands or hoarseness Endo Endocrine: No thyroid disease, diabetes mellitus, thyroid cancer, Hair loss, heat intolerance or cold intolerance Skin Skin: No rash or changing moles Musc Musculoskeletal: No back problems, arthritis, rheumatoid arthritis, gout or joint pain Cardio Cardiovascular: No murmur, pacemaker, heart disease, atrial fibrillation, high blood pressure, heart attack, heart stent, palpitations, shortness of breat with exertion or chest pain Psych Psychiatric: Yes anxiety; No depression or hearing voices Resp Respiratory: Yes shortness of breath, No sleep apnea, No cough, No COPD, No asthma, No emphysema and No wheezing Gastro Gastrointestinal: No abdominal pain, No nausea or vomiting, No diarrhea, No constipation, Yes blood in stool, Yes acid reflux, Yes hemorrhoids, Yes ulcers, No gallbladder problem and No black,tarry stools Trevin Hematologic: No blood thinners, No blood disorders, No bleeding, No anemia and Yes blood clots Additional Details: Baby ASA daily. Hx DVT's after leg surgery Neuro Neurologic: No system reviewed and no additional complaints, except as documented, No as per HPI, No abnormal gait, No abnormal hearing, No abnormal movements, No abnormal speech, No behavioral changes, No burning sensations, No confusion, No convulsions, No disequilibrium, No dizziness, No localized weakness, No frequent falls, No headache(s), No lack of coordination, No loss of vision, No memory loss, No numbness, No other visual disturbances, No radicular pain, No restless legs, No sensory deficit, No syncope, Yes tingling (Right hand and fingers), No tremor(s), No weakness and No other Exam Const General: cooperative Orientation: alert and oriented x3 HENMT Head: normal to inspection Neck Neck: normal visual inspection and full ROM Chest Chest palpation & inspection: normal inspection of the chest Resp Effort & Inspection: normal respiratory effort Auscultation: clear to auscultation bilaterally Cardio Rate: regular rate Rhythm: regular rhythm GI Inspection: non-distended Palpation: soft and nontender Other: Patient has multiple skin tags and external hemorrhoids. On internal dam I do not feel any internal hemorrhoids. There was no blood. Skin General: no rashes or lesions noted Neuro General: patient alert and patient oriented x3 Extrem General: full ROM Psych Appearance: grossly normal Mental Status: mental status grossly normal Assessment and Plan Assessment and Plan (1) Hemorrhoids: Status: Acute Qualifiers: Hemorrhoid type: residual hemorrhoidal skin tags Qualified Code(s): K64.4 - Residual hemorrhoidal skin tags Plan - Dr. Jacky Fernández MD: Patient has multiple residual hemorrhoidal skin tags which are very large. He reports he is unable to clean himself when he wipes due to these and there is a lot of tissue that is irritating especially with a lot of walking or sweating. He would like this removed. I did discuss this with him and I discussed the risks including modality to bleeding, infection, incontinence or recurrence. Patient understands the risks and is willing to proceed with excision. Jacky Fernández MD Pager: [facility] [address] [place] [address], [address] [place] [address] Office: I have re-examined the patient. There are no clinical changes since date of exam.
[2021-12-09] MEDS: Lactated Ringers 1,000 ML 15 ML IV (08:58)
[2021-12-09 09:06] LABS: Bedside Glucose 124 mg/dL (74-106)
[2021-12-09] MEDS: Cefotetan 2 GM in 0.9% NS 100 ML IV (10:00)
[2021-12-09] MEDS: Lubricating Jelly 60 GM Tube 30 GM (10:14)
--- NOTE | 2021-12-09 10:15 | HEM_PTH ---
PATIENT: [facility] LOC: [facility] U#:[id number] AGE/SX: 66/M ROOM: RE12/09/[address]: Dr. Jacky Fernández MD : 1955 BED: DIS: 12/09/2021 SPEC #: [id number] RECD: 12/09/21 15:15 STATUS: JOHANNE ISELA #: [id number] MELONIE: 12/09/21 10:[address]: Jacky Fernández DEPT: SURGICAL PATHOLOGY RECD BY: Elyse Medrano ENTERED: 12/10/21 09:56 SP TYPE: HEMORRHOID OTHR DR: SHALINI Laura Tissues: HEMORRHOIDS Procedures: Surgery Specimen Level III HEADER OPERATION: Hemorrhoidectomy, external PRE-OP DIAGNOSIS: Hemorrhoid type, residual hemorrhoidal skin tags TISSUE SUBMITTED: External hemorrhoids MICROSCOPIC DIAGNOSIS External hemorrhoids, hemorrhoidectomy: Submucosal vascular ectasia and thrombosis consistent with external hemorrhoids. Hyperkeratosis. AM:nuha 12/11/2021 MICROSCOPIC DESCRIPTION Slides are reviewed. GROSS DESCRIPTION Received in fixative is one container labeled with the patient's name and designated external hemorrhoids. The specimen consists of multiple irregular fragments of craft, glistening mucosa with attached submucosal soft tissue that in aggregate measure 3.5 x 1.5 x 0.2 cm. The specimen is totally submitted in one cassette. / AM:nuha 12/10/2021 TC:5 CPT: 49569
[2021-12-09] MEDS: Bupivacaine Mpf 0.5% 30 ML VIAL (10:16)
[2021-12-09] MEDS: Dibucaine 30 GM Tube 1 APPLIC (10:25)
--- NOTE | 2021-12-09 10:27 | PCM.OPRPT ---
Problems Associated Problem List Diagnoses (1) Hemorrhoids: Report of Operation Date of Procedure: 12/09/21 Pre-Operative Diagnosis: Hemorrhoids Post-Operative Diagnosis: Hemorrhoids and residual skin tags Surgery/Procedure Performed:: Hemorrhoidectomy Specimen's removed: Hemorrhoids Description of Procedure: Patient was brought back to the operating room and general anesthesia was induced. The patient was placed in prone jackknife position. Next the perineal area was prepped and draped in usual sterile fashion. The patient had several external residual hemorrhoids and skin tags which were removed with harmonic scalpel. There was good hemostasis. Several of these areas were sutured closed using interrupted 3-0 chromic suture. Local anesthetic was injected in the area surrounding the anus and then Dibucaine cream was placed over the operative area. Patient tolerated the procedure well was extubated and brought to PACU in stable condition. Admit VTE Documentation VTE Mechan Device Prophylaxis: SCD's
--- NOTE | 2021-12-09 10:29 | DCINST_ITS ---
Discharge Instructions Procedure Rectal Surgery Diet Discharge Diet: Light diet - advance as tolerated (Pain medication may cause nausea. You should typically eat light foods as you take your pain medication.) Activity Discharge Activity: Return to Normal Activity, May Not Drive (while you are taking narcotic pain medications. Do not drive, work with heavy equipment or sign legal documents for 24 hours after your surgery.), May Shower and May Take a Tub Bath May resume sexual activity in: No Restrictions Additional Activity Instructions:: Be aware that pain medications may cause nausea. You should typically eat light foods as you take your pain medications. Pain medications may also cause constipation, if you have difficulty with this please discuss with your doctor. Use Dibucaine cream 3 times a day and after bowel movements for pain relief Dressing / Incision Call your doctor if your incision/area has: Continuous Slow Oozing, Sudden I ncreased Bleeding, Increased Pain/ Swelling, Increased Redness, Foul Smelling Discharge and Swelling at the incision site Call your doctor if you observe: Fever of 101 or Higher and Uncontrolled pain Cleanse incision/area with: Soap & Water Additional Dressing/Incision Instructions:: Place dibucaine ointment on the perianal area as needed. Sitz baths twice daily and after bowel movements. Follow Up Care Please Follow Up With: Jacky Fernández MD When: Please call to schedule 2 week follow up appointment. [phone] Test Results: Test results from this visit will be discussed in further detail at your follow-up appointment, if applicable. Discharge Plan Admission Attending Provider: Jacky Fernández Primary Care Provider: Patience Velazquez Discharge Orders/Prescriptions Prescriptions: New oxycodone-acetaminophen [Percocet] 5-325 mg tablet 1 tab PO Q4H PRN (Reason: pain) 5 Days Qty: 30 RF: 0 No Action omeprazole magnesium 20 mg tablet,delayed release 20 mg tablet,delayed release (DR/EC) 20 mg PO DAILY RF: 0 aspirin [Adult Low Dose Aspirin] 81 mg tablet,delayed release (DR/EC) 81 mg PO DAILY RF: 0 vitamin B complex [B Complex-Vitamin B12] Tablet 1 tab PO DAILY RF: 0 ascorbate calcium (vitamin C) 500 mg tablet 500 mg PO DAILY RF: 0 cholecalciferol (vitamin D3) 50 mcg (2,000 unit) capsule 50 mcg PO DAILY RF: 0 zinc acetate 25 mg (zinc) capsule 25 mg PO DAILY RF: 0 metformin 500 mg tablet 500 mg PO DAILY RF: 0 Referrals / Follow Up: Patience Velazquez, PA [Primary Care Provider] - Disposition Disposition (needs filled in before D/C Order can be placed): Home, Self Care
[2021-12-09 11:40] LABS: Bedside Glucose 111 mg/dL (74-106)
== END 2021-12-09 12:50 | disposition home or self-care (01) ==
LOC: SDC 08:39 → AC 08:40
PROVIDERS: PCP Physician Assistant; Referring Provider Surgery; Visit Provider Surgery
PROC: (CPT 46320; principal; 2021-12-09 10:00)
DX: K64.5 Perianal venous thrombosis (principal); E11.9 Type 2 diabetes mellitus without complications; K64.4 Residual hemorrhoidal skin tags; K21.9 Gastro-esophageal reflux disease without esophagitis; Z86.718 Personal history of other venous thrombosis and embolism; Z87.19 Personal history of other diseases of the digestive system; Z79.82 Long term (current) use of aspirin; Z79.899 Other long term (current) drug therapy; Z87.891 Personal history of nicotine dependence; F41.9 Anxiety disorder, unspecified; Z79.84 Long term (current) use of oral hypoglycemic drugs; K76.0 Fatty (change of) liver, not elsewhere classified; L40.9 Psoriasis, unspecified; F32.A Depression, unspecified
CPT/HCPCS: 46320; 00902; 82962; 88304; J7120; J2405

== ENCOUNTER → 2022-02-17 | Outpatient (CLI) | payer MEDICARE, OTHER, SELFPAY ==
--- NOTE | 2022-02-17 13:46 | NEURO ---
NCS and/or EMG Patient Report Ordering Doctor: Jacky Fernández DATE OF SERVICE: 02/17/22 Johnathan presents for electrodiagnostic testing of the right upper limb. He reports numbness and tingling of the right hand. Electrodiagnostic findings: Right median motor nerve demonstrates prolonged distal latency with normal amplitude and reduced conduction velocity. Normal right ulnar motor response. Absent right median sensory latency at the wrist. Absent right median palmar latency. On needle EMG, all muscles tested in the right upper limb showed no evidence of denervation with normal motor unit action potentials. Electrodiagnostic impression: This is an abnormal study in the right upper limb 1. Electrodiagnostic findings suggestive of right-sided median mononeuropathy. This is consistent with a moderate right carpal tunnel syndrome
--- NOTE | 2022-03-08 14:03 | EKG12_ITS ---
Test Reason : PREOP Blood Pressure : / mmHG Vent. Rate : 073 BPM Atrial Rate : 073 BPM P-R Int : 180 ms QRS Dur : 074 ms QT Int : 368 ms P-R-T Axes : -02 024 032 degrees QTc Int : 405 ms Normal sinus rhythm Normal ECG Confirmed by MARIE TOMLIN, ANGELO ([id number]), web content editor NALLELY KELLEY ([id number]) on 03/09/2022 7:38:41 AM Referred By: Clemente Zaman Confirmed By:ANGELO SALAZAR MD
== END | disposition home or self-care (01) ==
LOC: PSN 10:30
PROVIDERS: PCP Physician Assistant; Visit Provider Surgery
DX: R20.2 Paresthesia of skin (principal); R20.0 Anesthesia of skin
CPT/HCPCS: 95886; 95910

== ENCOUNTER 2022-03-10 06:00 | Day surgery (SDC) | payer MEDICARE, OTHER, SELFPAY ==
[2022-03-08 15:38] LABS: Hematocrit 43.1 % (40-54); Hemoglobin 14.4 g/dL (13.0-16.5); Mean Corp Hgb Conc 33.4 g/dL (32-36); Mean Corpuscular Volume 98.6 fL (80-94); Mean Platelet Vol. 10.7 fl (6.2-12.0); Platelet Count 176 K/mm3 (150-450); RBC Distribution Width CV 12.4 % (11.6-14.6); RBC Distribution Width SD 44.8 fl (35.1-43.9); Red Blood Count 4.37 M/mm3 (4.6-6.2); White Blood Count 5.6 K/mm3 (4.4-11.0)
[2022-03-08 16:13] LABS: Anion Gap 7 (5-15); BUN 12 mg/dL (7-18); BUN/Creat Ratio 19.6 RATIO (10-20); Calcium,Total 8.8 mg/dL (8.5-10.1); Chloride 103 mmol/L (98-107); Creatinine, Serum 0.61 mg/dL (0.70-1.30); EST Glomerular Filtration Rate 140 mL/min (>60); Est Glom Filt Rate - Afr Amer 170 mL/min (>60); Glucose 102 mg/dL (74-106); Sodium Level 138 mmol/L (136-145)
[2022-03-10] VITALS (7 sets, daily range): BP systolic 122–140; BP diastolic 73–88; PULSE 61–70; RESP 16; TEMP 36.1–36.3; O2SAT 95–98; BMI 39.0
[2022-03-10] MEDS: Lactated Ringers 1,000 ML 15 ML IV (06:34)
--- NOTE | 2022-03-10 06:51 | HP.PCM_ITS ---
History and Physical Date of Admission: 03/10/22 Visit Reasons:?Right Carpal Tunnel Chief Complaint: Right carpel tunnel Is patient in pain?: No Allergies No Known Allergies Allergy (Verified 02/24/22 15:05) Medications aspirin 81 mg tablet,delayed release (Adult Low Dose Aspirin) 81 mg PO DAILY 06/15/18 [History Confirmed 02/24/22] omeprazole magnesium 20 mg tablet,delayed release (Prilosec OTC) 20 mg PO DAILY 06/15/18 [History Confirmed 02/24/22] ascorbate calcium (vitamin C) 500 mg tablet 500 mg PO DAILY 11/30/21 [History Confirmed 02/24/22] cholecalciferol (vitamin D3) 50 mcg (2,000 unit) capsule 50 mcg PO DAILY 11/30/21 [History Confirmed 02/24/22] metformin 500 mg tablet 500 mg PO DAILY 11/30/21 [History Confirmed 02/24/22] vitamin B complex (B Complex-Vitamin B12 tablet) 1 tab PO DAILY 11/30/21 [History Confirmed 02/24/22] zinc acetate 25 mg (zinc) capsule 25 mg PO DAILY 11/30/21 [History Confirmed 02/24/22] oxycodone-acetaminophen 5 mg-325 mg tablet (Percocet) 1 tab PO Q4H PRN pain 5 days #30 tabs 12/09/21 [Rx Confirmed 02/24/22] PFSH Medical History? Acid reflux Alcohol use Anxiety Back pain Depression Diabetes Dietary restriction Fatty liver Former smoker history of broken jaw History of DVT (deep vein thrombosis) History of edema History of pain when walking History of stomach ulcers History of stress test Leg cramps Numbness and tingling in right hand Psoriasis Shortness of breath on exertion Wears dentures Wears glasses Wears hearing aid Surgical History? H/O umbilical hernia repair History of tonsillectomy History of varicose vein ligation and stripping Family History? Mother Diabetes Hypertension Heart diseaseFather ulcers CancerSister Breast cancer Diabetes Social History? Smoking Status:? Former smoker Tobacco: How many years used:? 30 how long ago did patient quit smoking:? 15 years alcohol intake:? current alcohol intake frequency: a few times a week Alcohol type: wine details:? pt states takes a shot daily substance use type:? does not use HPI HPI HPI: CHARLENE LAKE, is a 66 M who presents to the office today for surgical consultation regarding numbness and tingling of the patient's right hand.? Absent right median sensory latency at the wrist.? Absent right median palmar latency.? Findings are felt to be consistent with moderate right carpal tunnel syndrome.? The patient recently has had a successful surgical hemorrhoidectomy on December 09, [address] Jacky Fernández. Patient states that he has had right greater than left carpal tunnel syndrome for many years.? He has never sought attention because he was working and did not want to take time off of work.? Patient retired this past July.? He notes that he cannot tolerate any type of machinery that vibrates.? He has to hang his hand down.? For many years she has been wearing bilateral wrist splints at night to allow him to sleep.? As noted above he has significant abnormality of his right median nerve at the wrist.? The patient complains of numbness of his right third and fourth digits all the way down to the PIP joint.? He did not have testing on the left as it has not yet been ordered.? Although he does not have numbness on the left he has pain and vibratory aggravation and the need to hang his hand down on that side as well. ROS General General: Yes fatigue; No weight change, appetite, colon cancer, breast cancer or weakness HEENT HEENT: No difficulty swallowing, eye injury, eye surgery, swollen glands or hoarseness Endo Endocrine: No thyroid disease, diabetes mellitus, thyroid cancer, Hair loss, heat intolerance or cold intolerance Skin Skin: No rash or changing moles Musc Musculoskeletal: No back problems, arthritis, rheumatoid arthritis, gout or joint pain Cardio Cardiovascular: No murmur, pacemaker, heart disease, atrial fibrillation, high blood pressure, heart attack, heart stent, palpitations, shortness of breat with exertion or chest pain Psych Psychiatric: Yes anxiety; No depression or hearing voices Resp Respiratory: Yes shortness of breath, No sleep apnea, No cough, No COPD, No asthma, No emphysema and No wheezing Gastro Gastrointestinal: No abdominal pain, No nausea or vomiting, No diarrhea, No constipation, Yes blood in stool, Yes acid reflux, Yes hemorrhoids, Yes ulcers, No gallbladder problem and No black,tarry stools Trevin Hematologic: No blood thinners, No blood disorders, No bleeding, No anemia and Yes blood clots Additional Details: Baby ASA daily. Hx DVT's after leg surgery Neuro Neurologic: No system reviewed and no additional complaints, except as documented, No as per HPI, No abnormal gait, No abnormal hearing, No abnormal movements, No abnormal speech, No behavioral changes, No burning sensations, No confusion, No convulsions, No disequilibrium, No dizziness, No localized weakness, No frequent falls, No headache(s), No lack of coordination, No loss of vision, No memory loss, No numbness, No other visual disturbances, No radicular pain, No restless legs, No sensory deficit, No syncope, Yes tingling (Right hand and fingers), No tremor(s), No weakness and No other Exam Const General: cooperative, comfortable and no acute distress Nutritional Appearance: obese morbidly obese [facility] Head: normal to inspection Neck Neck: normal visual inspection Chest Chest palpation & inspection: normal inspection of the chest Resp Effort & Inspection: normal respiratory effort Auscultation: clear to auscultation bilaterally Cardio Rate: regular rate Rhythm: regular rhythm GI Inspection: normal to inspection Other: Abdomen is overweight. Neuro Other: Light touch sensation diminished right first second third fourth digits.? Similar finding on the left. 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 In great detail with his present I have recommended doing a right carpal tunnel release but I cannot assure him that all of his symptoms pain tingling vibratory aggravation and particularly his numbness were all completely resolved.? I would anticipate that secondary to the chronicity of his disease that he likely will be left with some sequela I.? The patient has then expressed interest in having the left hand tested as he does have similar symptoms on the left just not to the severity of the right. I have discussed with him a right carpal tunnel release and we have discussed the technique, benefit, risk, alternatives.? Anticipate performing this with a Frieda block.? We will have him hold his aspirin 1 week ahead of time.? We will schedule him for testing of the left hand.? He has had an opportunity to ask and have questions answered.? I very much appreciate the kind opportunity of assisting with the surgical care. Copy: Dr. Jacky Fernández and STAN Laura M.D., F.A.C.S. I have re-examined the patient. There are no clinical changes since date of exam. Clemente Zaman M.D., F.A.C.S.
--- NOTE | 2022-03-10 06:52 | EX.PCM.DISCH ---
Discharge Instructions Diet Discharge Diet: Light diet - advance as tolerated Activity Discharge Activity: May Shower (Protect the right hand with a plastic bag so as not to get wet) Lifting Restrictions: Minimal lifting restrictions with the right hand. Only very very light Additional Activity Instructions:: Elevate your right arm for comfort and to limit swelling. You may apply ice to help limit swelling but please do not get the dressing wet. Keep the dressing clean dry and intact until your office follow-up. Follow Up Care Please Follow Up With: Clemente Zaman MD When: Please call [phone] for an appointment on March 15 Test Results: You may utilize [id number] pain medicine as needed per package instructions. Discharge Plan Admission Attending Provider: Clemente Zaman Primary Care Provider: Patience Velazquez Discharge Orders/Prescriptions Prescriptions: No Action omeprazole magnesium 20 mg tablet,delayed release 20 mg tablet,delayed release (DR/EC) 20 mg PO DAILY aspirin [Adult Low Dose Aspirin] 81 mg tablet,delayed release (DR/EC) 81 mg PO DAILY vitamin B complex [B Complex-Vitamin B12] Tablet 1 tab PO DAILY ascorbate calcium (vitamin C) 500 mg tablet 500 mg PO DAILY cholecalciferol (vitamin D3) 50 mcg (2,000 unit) capsule 50 mcg PO DAILY metformin 500 mg tablet 500 mg PO DAILY Referrals / Follow Up: Patience Velazquez PA [Primary Care Provider] - Disposition Disposition (needs filled in before D/C Order can be placed): Home, Self Care
[2022-03-10 07:00] LABS: Bedside Glucose 129 mg/dL (74-106)
[2022-03-10] MEDS: BACITRACIN/POLYMYXIN B 15 GM Tube 1 APPLIC (07:59)
[2022-03-10] MEDS: Bupivacaine 0.25% 30 ML Vial (07:59)
--- NOTE | 2022-03-10 08:02 | OP.PCM_ITS ---
Report of Operation Date of Procedure: 03/10/22 Pre-Operative Diagnosis: Right carpal tunnel syndrome Post-Operative Diagnosis: Same Surgery/Procedure Performed:: Right carpal tunnel release Description of Surgical Findings:: Timeout and informed consent was obtained. 66-year-old gentleman was taken to the operating placed upon the table the right upper extremity was sterilely prepped and draped tourniquet was applied and inflated to 250 mmHg pressure total tourniquet time was 23 minutes clean procedure no antibiotics required 0.25% Marcaine was used as a local anesthetic a total of 6 cc was used curvilinear incision made in the base of the right palm per chart dissection carried down to the palmar fascia which was incised the median nerve identified and protected the palmar fascia was incised to the proximal wrist crease and the n along the fourth ray to the mid palm excellent release was immediately achieved the subdermal tissues approximated with interrupted 3-0 chromic skin is approximated simple sutures of 4-0 nylon topical antibiotic ointment Telfa 4 x 4 soft roll Renard wrap applied counts correct blood loss minimal patient tolerated the procedure well and was taken to the recovery room in satisfactory condition without apparent complication Specimens none. Drains none. Blood loss minimal Clemente Zaman M.D., F.A.C.S. Surgeon: Clemente Zaman Type of Anesthesia: Block,Regional and Local Anesthesiologist: Kelvin Pineda
== END 2022-03-10 09:00 | disposition home or self-care (01) ==
LOC: SDC 06:01 → AC 06:03
PROVIDERS: PCP Physician Assistant; Referring Provider Surgery; Visit Provider Surgery
PROC: (CPT 64721; principal; 2022-03-10 07:15)
DX: G56.01 Carpal tunnel syndrome, right upper limb (principal); E11.9 Type 2 diabetes mellitus without complications; Z87.891 Personal history of nicotine dependence; F32.A Depression, unspecified; K76.0 Fatty (change of) liver, not elsewhere classified; Z86.718 Personal history of other venous thrombosis and embolism; L40.9 Psoriasis, unspecified; Z87.19 Personal history of other diseases of the digestive system; Z79.84 Long term (current) use of oral hypoglycemic drugs; Z79.899 Other long term (current) drug therapy; Z79.82 Long term (current) use of aspirin; F41.9 Anxiety disorder, unspecified; K21.9 Gastro-esophageal reflux disease without esophagitis
CPT/HCPCS: 64721; 01810; 36415; 80048; 82962; 85027; 93005; J7120; A4216

== ENCOUNTER → 2022-05-03 | Outpatient (CLI) | payer MEDICARE, OTHER, SELFPAY ==
--- NOTE | 2022-05-03 16:42 | NEURO ---
NCS and/or EMG Patient Report Ordering Doctor: Clemente Zaman DATE OF SERVICE: 05/03/22 Indication: Intermittent numbness of the 3rd and 4th fingers in the left hand. Symptoms are exacerbated by sleep and riding his bicycle. History of prior carpal tunnel syndrome on the right which improved following surgical release. Findings: Nerve conduction studies were performed in the left upper extremity. The left median motor study recording the abductor pollicis brevis showed a normal amplitude, prolonged distal latency and normal conduction velocity. The left ulnar motor study recording the abductor digiti minimi showed a normal amplitude, normal distal latency and normal conduction velocity. Focal slowing was present across the elbow. The left ulnar motor study recording the first dorsal interosseous showed a normal amplitude, normal distal latency and normal conduction velocity. Focal slowing was present across the elbow. The left median sensory response recording digit two showed a normal amplitude, prolonged latency and slowed conduction velocity. The left ulnar sensory response recording digit five showed a normal amplitude, latency and conduction velocity. The left radial sensory response recording over the extensor snuff box showed a normal amplitude, latency and conduction velocity. Needle EMG of the left upper extremity muscles was performed. No denervation was seen in any muscle. Motor units in the abductor pollicis brevis were large amplitude and long duration with reduced recruitment. Motor units in the flexor digitorum profundus were slightly large, but otherwise unremarkable. All other motor unit morphology, activation and recruitment patterns were normal. Impression: This is an abnormal study. 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 These findings are compatible with the clinical diagnosis of carpal tunnel syndrome. 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 Ramone Barrett D.O. Multi Select Codes Neurology Neurology Interp Codes: 61925-60 Musc test done w/n test comp (interp) and 13825-78 Nr cnd tst 5-6 studies (interp)
== END | disposition home or self-care (01) ==
LOC: PSN 15:05
PROVIDERS: PCP Physician Assistant; Referring Provider Surgery; Visit Provider Surgery
DX: G56.02 Carpal tunnel syndrome, left upper limb (principal)
CPT/HCPCS: 95886; 95909

== ENCOUNTER 2022-07-01 09:43 | Day surgery (SDC) | payer MEDICARE, OTHER, SELFPAY ==
[2022-07-01] VITALS (8 sets, daily range): BP systolic 116–129; BP diastolic 75–86; PULSE 59–70; RESP 16–18; TEMP 36.1–36.6; O2SAT 93–97; BMI 39.4
[2022-07-01] MEDS: Lactated Ringers 1,000 ML 15 ML IV (10:38)
--- NOTE | 2022-07-01 11:33 | PCM.HP.BLA ---
History and Physical Date of Admission: 07/01/22 Visit Reasons:?LEFT CARPAL TUNNEL Chief Complaint: left carpal tunnel Is patient in pain?: No Allergies No Known Allergies Allergy (Verified 06/17/22 09:24) Medications aspirin 81 mg tablet,delayed release (Adult Low Dose Aspirin) 81 mg PO DAILY 06/15/18 [History Confirmed 06/17/22] omeprazole magnesium 20 mg tablet,delayed release (Prilosec OTC) 20 mg PO DAILY 06/15/18 [History Confirmed 06/17/22] ascorbate calcium (vitamin C) 500 mg tablet 500 mg PO DAILY 11/30/21 [History Confirmed 06/17/22] cholecalciferol (vitamin D3) 50 mcg (2,000 unit) capsule 50 mcg PO DAILY 11/30/21 [History Confirmed 06/17/22] metformin 500 mg tablet 500 mg PO DAILY 11/30/21 [History Confirmed 06/17/22] vitamin B complex (B Complex-Vitamin B12 tablet) 1 tab PO DAILY 11/30/21 [History Confirmed 06/17/22] hydrocodone-acetaminophen 5-325mg 5mg-325mg 1 - 2 tab PO Q4H PRN PRN Pain Score 1-10/10 2 days #5 tabs 03/10/22 [Rx Confirmed 06/17/22] PFSH Medical History? Acid reflux Alcohol use Anxiety Back pain Depression Diabetes Dietary restriction Fatty liver Former smoker history of broken jaw History of DVT (deep vein thrombosis) History of edema History of pain when walking History of stomach ulcers History of stress test Leg cramps Numbness and tingling in right hand Psoriasis Shortness of breath on exertion Wears dentures Wears glasses Wears hearing aid Surgical History? H/O umbilical hernia repair History of tonsillectomy History of varicose vein ligation and stripping Hx of hemorrhoidectomy Family History? Mother Diabetes Hypertension Heart diseaseFather ulcers CancerSister Breast cancer Diabetes Social History? Smoking Status:? Former smoker Tobacco: How many years used:? 30 how long ago did patient quit smoking:? 15 years alcohol intake:? current alcohol intake frequency: a few times a week Alcohol type: wine details:? pt states takes a shot daily substance use type:? does not use HPI HPI HPI: 67-year-old gentleman.? I performed a right carpal tunnel release for him on March 10, 2022.? At that time he had right greater than left hand carpal tunnel symptoms.? He had recently retired from work but at work had required using machinery that vibrated.? He had tried for many years bilateral wrist splints at night.? The patient complained of numbness of his right third and fourth digits all the way down to the PIP joint.? At the time of his previous visit he had not yet had testing on the left hand but was complaining of numbness on the left as well. The patient had nerve conduction test performed on the left May 03, 2022 at the [facility].? These are abnormal findings consistent with carpal tunnel syndrome.? 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 The patient states that he has had good result the right hand.? 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 He claims that the numbness of the fingers however completely resolved and he is quite happy with that. ROS General General: Yes fatigue; No weight change, appetite, colon cancer, breast cancer or weakness HEENT HEENT: No difficulty swallowing, eye injury, eye surgery, swollen glands or hoarseness Endo Endocrine: No thyroid disease, diabetes mellitus, thyroid cancer, Hair loss, heat intolerance or cold intolerance Skin Skin: No rash or changing moles Musc Musculoskeletal: No back problems, arthritis, rheumatoid arthritis, gout or joint pain Cardio Cardiovascular: No murmur, pacemaker, heart disease, atrial fibrillation, high blood pressure, heart attack, heart stent, palpitations, shortness of breat with exertion or chest pain Psych Psychiatric: Yes anxiety; No depression or hearing voices Resp Respiratory: Yes shortness of breath, No sleep apnea, No cough, No COPD, No asthma, No emphysema and No wheezing Gastro Gastrointestinal: No abdominal pain, No nausea or vomiting, No diarrhea, No constipation, Yes blood in stool, Yes acid reflux, Yes hemorrhoids, Yes ulcers, No gallbladder problem and No black,tarry stools Trevin Hematologic: No blood thinners, No blood disorders, No bleeding, No anemia and Yes blood clots Additional Details: Baby ASA daily. Hx DVT's after leg surgery Neuro Neurologic: No system reviewed and no additional complaints, except as documented, No as per HPI, No abnormal gait, No abnormal hearing, No abnormal movements, No abnormal speech, No behavioral changes, No burning sensations, No confusion, No convulsions, No disequilibrium, No dizziness, No localized weakness, No frequent falls, No headache(s), No lack of coordination, No loss of vision, No memory loss, No numbness, No other visual disturbances, No radicular pain, No restless legs, No sensory deficit, No syncope, Yes tingling (Right hand and fingers), No tremor(s), No weakness and No other Exam Const General: cooperative, healthy appearing, comfortable and no acute distress HENLA Head: normal to inspection Eyes General: appearance normal, both eyes and all related structures Neck Neck: normal visual inspection Resp Effort & Inspection: normal respiratory effort Auscultation: clear to auscultation bilaterally Cardio Rate: regular rate Rhythm: regular rhythm GI Inspection: normal to inspection Musc Cervical Spine: normal cervical lordosis Skin General: no rashes or lesions noted Neuro General: patient alert and patient awake Extrem Other: Bilateral 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 Mild left thenar atrophy.? No Tinel's sign.? Adequate capillary refill. Assessment and Plan Assessment and Plan (1) Carpal tunnel syndrome of left wrist: ?Status:?Acute ?Plan: The patient has had a good result from his right carpal tunnel release.? I recommend a left carpal tunnel release performed with a regional Frieda block anesthesia.? He is aware of the technique, benefit, risk, alternatives.? No guarantees of success have been offered.? We will schedule procedure at his discretion.? He is hoping to have this accomplished before the end of the year. My operative note of March 10, 2022 discussed what appears to be a straightforward uncomplicated release of the palmar fascia on the right..? There were no difficulties or complications noted at that time. Copy: STAN Laura M.D., F.A.C.S. I have examined the patient and the H&P has been reviewed. There are no clinical changes since date of exam. Clemente Zaman M.D., F.A.C.S.
--- NOTE | 2022-07-01 11:44 | DCINST_ITS ---
Discharge Instructions Diet Discharge Diet: Light diet - advance as tolerated Activity Discharge Activity: May Drive Lifting Restrictions: 5 lb weight lifting restriction Dressing / Incision Call your doctor if your incision/area has: Continuous Slow Oozing, Sudden Increased Bleeding, Increased Pain/ Swelling and Foul Smelling Discharge Call your doctor if you observe: Fever of 101 or Higher Follow Up Care When: Please call the office for a followup appt for suture removal on 07/07/22 Test Results: Test results from this visit will be discussed in further detail at your follow- up appointment, if applicable. Discharge Plan Admission Attending Provider: Clemente Zaman Primary Care Provider: Patience Velazquez Discharge Orders/Prescriptions Prescriptions: No Action omeprazole magnesium 20 mg tablet,delayed release 20 mg tablet,delayed release (DR/EC) 20 mg PO DAILY aspirin [Adult Low Dose Aspirin] 81 mg tablet,delayed release (DR/EC) 81 mg PO DAILY vitamin B complex [B Complex-Vitamin B12] Tablet 1 tab PO DAILY metformin 500 mg tablet 500 mg PO DAILY Referrals / Follow Up: Patience Velazquez PA [Primary Care Provider] - Disposition Disposition (needs filled in before D/C Order can be placed): Home, Self Care
[2022-07-01] MEDS: BACITRACIN/POLYMYXIN B 15 GM Tube 1 APPLIC (12:12)
--- NOTE | 2022-07-01 12:31 | PCM.OPRPT ---
Report of Operation Date of Procedure: 07/01/22 Pre-Operative Diagnosis: Left carpal tunnel syndrome Post-Operative Diagnosis: Same Surgery/Procedure Performed:: Left carpal tunnel release Description of Surgical Findings:: Timeout informed consent was obtained. 67-year-old gentleman was taken to the operating placed upon the table. A left upper extremity Frieda block performed tourniquet pressure to 300 mmHg pressure for 27 minutes. The left hand was sterilely prepped and draped. A curvilinear incision was made in the base of the left palm. Sharp dissection performed down to the palmar fascia which was incised the median nerve identified palmar fascia incised to the proximal wrist crease and then along the fourth ray to the mid palm with good release. The subcu dermal tissues approximated opted for 0 chromic. Skin edges approximated simple sutures of 5-0 nylon antibiotic ointment Telfa 4 x 4 soft roll Renard wrap applied the periincisional area was anesthetized with 0.25% Marcaine. 7 cc was used. Sponge and instrument and needle counts were reported to the surgeon to be correct. Specimens none. Drains none. Blood loss minimal. The patient was taken to the recovery area in satisfied condition without apparent complication Clemente Zaman M.D., F.A.C.S. Surgeon: Clemente Zaman Anesthesiologist: Kaity Anne
== END 2022-07-01 14:05 | disposition home or self-care (01) ==
LOC: SDC 09:44 → AC 09:45
PROVIDERS: PCP Physician Assistant; Referring Provider Surgery; Visit Provider Surgery
PROC: (CPT 64721; principal; 2022-07-01 11:45)
DX: G56.02 Carpal tunnel syndrome, left upper limb (principal); E11.9 Type 2 diabetes mellitus without complications; G56.22 Lesion of ulnar nerve, left upper limb; Z87.891 Personal history of nicotine dependence; Z79.82 Long term (current) use of aspirin; K21.9 Gastro-esophageal reflux disease without esophagitis; Z86.16 Personal history of COVID-19
CPT/HCPCS: 64721; 01810; J7120; J2405

== ENCOUNTER → 2024-02-15 | Outpatient (CLI) | payer MEDICARE, OTHER, SELFPAY ==
--- NOTE | 2024-02-15 10:31 | RAD_ITS ---
STUDY: X-RAY CHEST REASON FOR EXAM: Male, 68 years old. Shortness of breath. TECHNIQUE: Frontal and lateral views of the chest. COMPARISON: None. FINDINGS: Low volume inspiration. Scattered healed parenchymal granulomatous calcifications. There is no demonstrated pleural abnormality. Mild cardiomegaly. Normal mediastinum and estelle. Normal visualized pulmonary arteries. Aortic tortuosity. Osteopenia with diffuse mild thoracic spondylosis. Normal visualized ribs, clavicles, and shoulders. No abnormality of the visualized soft tissue structures of the upper abdomen. RAD/Chest PA and Lateral IMPRESSION: Cardiomegaly with no acute or active cardiopulmonary disease. Electronically Signed: Wilder Sierra MD at 15:36 EDT ,
== END | disposition home or self-care (01) ==
LOC: MTRAD 10:30
PROVIDERS: PCP Physician Assistant; Referring Provider Internal Medicine Pulmonary Disease; Visit Provider Internal Medicine Pulmonary Disease
DX: R06.02 Shortness of breath (principal)
CPT/HCPCS: 71046

== ENCOUNTER → 2024-04-11 | Outpatient (CLI) | payer MEDICARE, OTHER, SELFPAY ==
--- NOTE | 2024-04-11 09:53 | ECHOD_ITS ---
Reason For Study: SOB/CATHY Procedure This was a 2D Doppler, Color Flow transthoracic echocardiogram. Exam performed in department. Left Ventricle Normal LV size. Left ventricular systolic function is normal. The left ventricular ejection fraction is 55 %. No regional wall motion abnormalities noted. Right Ventricle Normal RV size. Normal systolic function. Atria Normal left atrium. Normal right atrium. Mitral Valve Normal mitral valve. Tricuspid Valve Normal tricuspid valve. Mild (1+) tricuspid valve insufficiency. Pulmonary artery systolic pressure is 25 mmHg. Aortic Valve Trisinus/trileaflet aortic valve. Pulmonic Valve Normal pulmonic valve. Great Vessels Normal aortic root. The pulmonary artery is normal size. Normal inferior vena cava. Pericardium/Pleural No pericardial effusion. MMode/2D Measurements & Calculations LVIDd: 3.8 cm IVSd: 1.1 cm Ao root diam: 3.1 cm LVIDs: 2.7 cm LVPWd: 1.0 cm RVDd: 4.1 cm FS: 30.0 % LAV(MOD-bp): 42.5 ml LVAd ap4: 36.1 cm2 SV(MOD-sp4): 67.3 ml LAV(MOD-bp) Indexed: 19.5 ml/m2 LVLd ap4: 9.0 cm LAV(MOD-sp2): 40.6 ml EDV(MOD-sp4): 117.7 ml LAV(MOD-sp4): 38.3 ml EDV(sp4-el): 122.7 ml LVAs ap4: 21.4 cm2 LVLs ap4: 7.8 cm ESV(MOD-sp4): 50.3 ml ESV(sp4-el): 50.1 ml EF(MOD-sp4): 57.2 % EF(sp4-el): 59.2 % SV(sp4-el): 72.6 ml LA A4 area: 15.9 cm2 LA dimension(2D): 3.6 cm RA A4 area: 15.1 cm2 TAPSE: 2.0 cm Time Measurements MV dec time: 0.23 sec Doppler Measurements & Calculations MV E max teofilo: 62.8 cm/sec Lat Peak E' Teofilo: 7.6 cm/sec Med Peak E' Teofilo: 9.2 cm/sec MV A max teofilo: 75.7 cm/sec E/E' lat: 8.3 E/E' med: 6.8 MV E/A: 0.83 Ao V2 max: 134.1 cm/sec LV V1 max: 99.1 cm/sec PA V2 max: 120.6 cm/sec Ao max P.2 mmHg LV V1 max P.9 mmHg TR max teofilo: 238.1 cm/sec TR max P.7 mmHg ECHO/Echo Complete Interpretation Summary Normal LV size. Left ventricular systolic function is normal. The left ventricular ejection fraction is 55 %. Pulmonary artery systolic pressure is 25 mmHg. Structurally normal valves. Ordering Physician: Clemente Ellison V Referring Physician: MAHI CHANEY Performed By: Shi Sharif RDCS
== END | disposition home or self-care (01) ==
LOC: CVS 09:47
PROVIDERS: PCP Physician Assistant; Referring Provider Internal Medicine Pulmonary Disease; Visit Provider Internal Medicine Pulmonary Disease
DX: R06.02 Shortness of breath (principal); G47.33 Obstructive sleep apnea (adult) (pediatric); Z87.891 Personal history of nicotine dependence
CPT/HCPCS: 93306

== ENCOUNTER 2024-12-04 07:15 | Day surgery (SDC) | payer MEDICARE, OTHER, SELFPAY ==
--- NOTE | 2024-11-29 16:17 | PAT.ANE_ITS ---
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 When Was Last Pacemaker Check QUESTION #4 FULL TEXT: You/Your Family Experience fever (hyperthermia) with Anesthesia Last Oral Intake Last Oral intake: Last Oral Intake NPO since Meds taken in AM with sips of water? 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 Female No 11/29/24 14:25 HX of Motion Sickness No 11/29/24 14:25 HX of N/V After Surgery No 11/29/24 14:25 Non-Smoker Yes 11/29/24 14:25 Duration of Surgery greater No 11/29/24 14:25 than 60 minutes Number of Risk Factors 1 11/29/24 14:25 PONV Score Low Risk 11/29/24 14:25 Height & Weight Height & Weight: Anesthesia: Height & Weight Height 5 ft 6 in 07/01/22 10:32 Respiratory Assessment Respiratory Assessment - ironing machine operator: Respiratory Tract Infection Hx - ironing machine operator Hx Respiratory Tract Infection No 11/29/24 14:25 STOP Sleep Apnea STOP Sleep Apnea - ironing machine operator: STOP Sleep Apnea - ironing machine operator Hx Hypertension No 11/29/24 14:25 Hx Sleep Apnea Yes 11/29/24 14:25 CPAP Yes 11/29/24 14:25 BIPAP No 11/29/24 14:25 Do you snore loudly (louder than talking or can be heard Do you often feel tired/ fatigued/ sleepy during daytime? Has anyone observed you stop breathing during sleep? STOP Results Positive 11/29/24 14:25 QUESTION #5 FULL TEXT : Do you snore loudly (louder than talking or can be heard through closed doors)? 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 Specify any problems Hx of Preganancy in last 3 N/A 11/29/24 14:25 Months Nurse Filling Out Transfusion DSCHRIBER 11/29/24 14:25 & Questions: Date: 11/29/24 11/29/24 14:25 Time: 11/29/24 14:25 Patient unable to answer at this time (ie. confused, unrespo /Reproduction History /Reproductive History - ironing machine operator: /Reproductive Hx- ironing machine operator Hx Now No 11/29/24 14:25 Gestational Age (in weeks): EDC: Hx Hx Para Hx Section SAB No 11/29/24 14:25 PFS Medical History (Updated 11/29/24 @ 14:36 by Cuca Millard) Injury of head and neck History of ulceration History of diverticulitis Gastric reflux History of echocardiogram Wears hearing aid Wears glasses Wears dentures Alcohol use Diabetes Fatty liver Back pain Dietary restriction Former smoker Shortness of breath on exertion Leg cramps History of edema History of stress test History of DVT (deep vein thrombosis) history of broken jaw Home Medications ?Medication ?Instructions ?Recorded ?Last Taken ?Type aspirin 81 mg tablet,delayed 81 mg PO DAILY 06/15/18 1 08/29/21 History release (Adult Low Dose Aspirin) omeprazole magnesium 20 mg 20 mg PO DAILY 06/15/18 History tablet,delayed release (Prilosec OTC) metformin 500 mg tablet 500 mg PO DAILY 11/30/21 Unk nown History vitamin B complex (B 1 tab PO DAILY 11/30/21 Unkn own History Complex-Vitamin B12 tablet) cetirizine 10 mg capsule (All Day 10 mg PO QHS 5 Unknown History Allergy (cetirizine)) Allergy/AdvReac Type Severity Reaction Status Date / Time No Known Allergies Allergy Verified 11/29/24 14:23 Family History Mother Diabetes Hypertension Heart disease Father ulcers Cancer Sister Breast cancer Diabetes Surgical History (Updated 11/29/24 @ 14:36 by Cuca Millard) History of carpal tunnel surgery of left wrist Hx of hemorrhoidectomy H/O umbilical hernia repair History of varicose vein ligation and stripping History of tonsillectomy Social History Smoking Status: Former smoker Tobacco: How many years used: 30 how long ago did patient quit smokin years alcohol intake: current alcohol intake frequency: a few times a week Alcohol type: wine details: pt states takes a shot daily substance use type: does not use Audit: Pertinent Findings Pertinent Findings EKG Perinent findings: 03/08/2022. Normal sinus rhythm 73 bpm. Normal EKG. Echo (EF%) pertinent findings: 04/11/2024. Normal size function EF 55%. Pulmonary artery pressure 25. Structurally normal valves. Recommendation Anesthesia Recommendation Anesthesia recommendation: OPTIMIZED for anesthesia
[2024-12-04] VITALS (8 sets, daily range): BP systolic 111–129; BP diastolic 64–88; PULSE 54–60; RESP 14–18; TEMP 36.1–36.2; O2SAT 94–98; BMI 37.9
[2024-12-04] MEDS: Lactated Ringers 1,000 ML 15 ML IV (07:48)
[2024-12-04 08:08] LABS: Bedside Glucose 142 mg/dL (74-106)
--- NOTE | 2024-12-04 08:16 | PCM.PRE.AN2 ---
ASA Classification* ASA Classification ASA Classification: 2 Assessment & Plan Anesthesia* Anesthesia Assessment Anesthesia Assessment: Discussed sedation and/or anesthesia options, risks, benefits, and alternatives with patient/parents/legal guardian/POA. Questions invited. The patient/parents/legal guardian/POA seems to understand and agrees to proceed with anesthesia plan. Reviewed the physical assessment, medical history, allergy history and patient home medications list prior to surgery/procedure/anesthetic and documented any changes. Performed airway and anesthesia risk assessments. Anesthesia Type Anesthesia Type: MAC History Source History Obtained from:: Patient and Chart Anesthesia Focused Assessment* Temperature: 97.0 F Pulse Rate: 58 Blood Pressure: 126/88 Respiratory Rate: 18 Pulse Ox: 98 Oxygen Delivery Method: Room Air Airway Assessment Mouth opens: >3 cm Mallampati Score: IV Teeth Condition: Dentures (Patient has upper and lower dentures. They will remain in.) Neck Range of motion (ROM): Full ROM Focused Labs Anesthesia Preop lab: CBC WBC 5.6 K/mm3 (4.4-11.0) 03/08/22 14:15 03/08/22 RBC 4.37 M/mm3 (4.6-6.2) L 03/08/22 14:15 03/08/22 Hgb 14.4 g/dL (13.0-16.5) 03/08/22 14:15 03/08/22 Hct 43.1 % (40-54) 03/08/22 14:15 03/08/22 Plt Count 176 K/mm3 (150-450) 03/08/22 14:15 03/08/22 CHEMISTRY Potassium 4.0 mmol/L (3.5-5.1) 03/08/22 14:15 03/08/22 Sodium 138 mmol/L (136-145) 03/08/22 14:15 03/08/22 BUN 12 mg/dL (7-18) 03/08/22 14:15 03/08/22 Creatinine 0.61 mg/dL (0.70-1.30) L 03/08/22 14:15 03/08/22 Glucose 102 mg/dL (74-106) 03/08/22 14:15 03/08/22 POC Glucose 142 mg/dL (74-106) H 12/04/24 07:42 12/04/24 COAG Pre-Assessment Diagnosis/Proposed Procedure Planned Operative Procedure(s): CSCOPE OA Anesthesia History 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 When Was Last Pacemaker Check QUESTION #4 FULL TEXT: You/Your Family Experience fever (hyperthermia) with Anesthesia Last Oral Intake Last Oral intake: Last Oral Intake NPO since 00:00 12/04/24 07:44 Meds taken in AM with sips of No 12/04/24 07:44 water? 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: PONV - account support analyst Female No 11/29/24 14:25 HX of Motion Sickness No 11/29/24 14:25 HX of N/V After Surgery No 11/29/24 14:25 Non-Smoker Yes 11/29/24 14:25 Duration of Surgery greater No 11/29/24 14:25 than 60 minutes Number of Risk Factors 1 11/29/24 14:25 PONV Score Low Risk 11/29/24 14:25 Height & Weight Height & Weight: Anesthesia: Height & Weight Height 5 ft 6 in 12/04/24 07:44 Weight: 106.6 kg 12/04/24 07:44 Body Mass Index (BMI) 37.9 12/04/24 07:44 Respiratory Assessment Respiratory Assessment - account support analyst: Respiratory Tract Infection Hx - account support analyst Hx Respiratory Tract Infection No 11/29/24 14:25 STOP Sleep Apnea STOP Sleep Apnea - account support analyst: STOP Sleep Apnea - account support analyst Hx Hypertension No 11/29/24 14:25 Hx Sleep Apnea Yes 11/29/24 14:25 CPAP Yes 11/29/24 14:25 BIPAP No 11/29/24 14:25 Do you snore loudly (louder than talking or can be heard Do you often feel tired/ fatigued/ sleepy during daytime? Has anyone observed you stop breathing during sleep? STOP Results Positive 11/29/24 14:25 QUESTION #5 FULL TEXT : Do you snore loudly (louder than talking or can be heard through closed doors)? 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 Specify any problems Hx of Preganancy in last 3 N/A 11/29/24 14:25 Months Nurse Filling Out Transfusion DSCHRIBER 11/29/24 14:25 & Questions: Date: 11/29/24 11/29/24 14:25 Time: 14:26 11/29/24 14:25 Patient unable to answer at this time (ie. confused, unrespo /Reproduction History /Reproductive History - account support analyst: /Reproductive Hx- account support analyst Hx Now No 11/29/24 14:25 Gestational Age (in weeks): EDC: Hx Hx Para Hx Section SAB No 11/29/24 14:25 Active Medications Active Medications: Current Medications Generic Name Dose Route Start Last Admin Trade Name Freq PRN Reason Stop Dose Admin Lactated Ringer's 1,000 mls @ 15 mls/hr 12/04/24 07:30 12/04/24 07:48 IV 15 mls/hr .Q48H MORGAN Administration PFSH Medical History Injury of head and neck History of ulceration History of diverticulitis Gastric reflux History of echocardiogram Wears hearing aid Wears glasses Wears dentures Alcohol use Diabetes Fatty liver Back pain Dietary restriction Former smoker Shortness of breath on exertion Leg cramps History of edema History of stress test History of DVT (deep vein thrombosis) history of broken jaw Home Medications ?Medication ?Instructions ?Recorded ?Last Taken ?Type aspirin 81 mg tablet,delayed 81 mg PO DAILY 06/15/18 12/02/24 History release (Adult Low Dose Aspirin) omeprazole magnesium 20 mg 20 mg PO DAILY 06/15/18 12/02/24 History tablet,delayed release (Prilosec OTC) metformin 500 mg tablet 500 mg PO DAILY 11/30/21 12/02/24 History vitamin B complex (B 1 tab PO DAILY 11/30/21 12/02/24 History Complex-Vitamin B12 tablet) cetirizine 10 mg capsule (All Day 10 mg PO QHS 11/29/24 12/02/24 History Allergy (cetirizine)) Allergy/AdvReac Type Severity Reaction Status Date / Time No Known Allergies Allergy Verified 12/04/24 07:43 Family History Mother Diabetes Hypertension Heart disease Father ulcers Cancer Sister Breast cancer Diabetes Surgical History History of carpal tunnel surgery of left wrist Hx of hemorrhoidectomy H/O umbilical hernia repair History of varicose vein ligation and stripping History of tonsillectomy Social History Smoking Status: Former smoker Tobacco: How many years used: 30 how long ago did patient quit smokin years alcohol intake: current alcohol intake frequency: a few times a week Alcohol type: wine details: pt states takes a shot daily substance use type: does not use Review of Systems (Anesthesia) ROS Narrative System reviewed and no additional complaints, except as documented.
--- NOTE | 2024-12-04 08:44 | H&P.OPEN ---
HPI - General HPI Narrative CHARLENE LAKE, is a 69 M who presents for screening colonoscopy. He does not have any abdominal pain or blood in the stool. Of note his daughter has colon cancer at age 44. This is his first colonoscopy. [facility] Medical History Injury of head and neck History of ulceration History of diverticulitis Gastric reflux History of echocardiogram Wears hearing aid Wears glasses Wears dentures Alcohol use Diabetes Fatty liver Back pain Dietary restriction Former smoker Shortness of breath on exertion Leg cramps History of edema History of stress test History of DVT (deep vein thrombosis) history of broken jaw Home Medications ?Medication ?Instructions ?Recorded ?Last Taken ?Type aspirin 81 mg tablet,delayed 81 mg PO DAILY 06/15/18 12/02/24 History release (Adult Low Dose Aspirin) omeprazole magnesium 20 mg 20 mg PO DAILY 06/15/18 12/02/24 History tablet,delayed release (Prilosec OTC) metformin 500 mg tablet 500 mg PO DAILY 11/30/21 12/02/24 History vitamin B complex (B 1 tab PO DAILY 11/30/21 12/02/24 History Complex-Vitamin B12 tablet) cetirizine 10 mg capsule (All Day 10 mg PO QHS 11/29/24 12/02/24 History Allergy (cetirizine)) Allergy/AdvReac Type Severity Reaction Status Date / Time No Known Allergies Allergy Verified 12/04/24 07:43 Family History Mother Diabetes Hypertension Heart disease Father ulcers Cancer Sister Breast cancer Diabetes Surgical History History of carpal tunnel surgery of left wrist Hx of hemorrhoidectomy H/O umbilical hernia repair History of varicose vein ligation and stripping History of tonsillectomy Social History Smoking Status: Former smoker Tobacco: How many years used: 30 how long ago did patient quit smokin years alcohol intake: current alcohol intake frequency: a few times a week Alcohol type: wine details: pt states takes a shot daily substance use type: does not use Past Medical/Surgical History Planned Operation Planned Operative Procedure(s): CSCOPE OA S.O.S: No Previous Hospitalizations/Surgeries HX Hospitalizations: No HX of Surgeries: JAW FX 1973 TONSILLECTOMY 1988 VEIN STRIPPING BILAT 2008 Any Problems With Anesthesia: No You/Your Family Experience Fever (Hyperthermia) With Anes: No Cholinesterase deficiency: No Cardiovascular Hx Chest Pain within Last 2 months: No Hx of Irregular Heartbeat and/or Afib: No Hx Heart Attack: No Hx Congestive Heart Failure: No Hx Rheumatic Fever: No Hx Hypertension: No Hx Internal Defibrillator: No Hx Pacemaker: No Hx Cardiac Catheterization: No Hx Cardiac Surgery/Stents/Etc.: No Hx Stress Test: Yes (7YRS AGO/NEGATIVE PER FAMILY) Hx Pain in Legs when Walking/Leg Cramps: No Respiratory Chronic Cough: No HX of Shortness of Breath: No Hoarseness: No Hx Chronic Obstructive Pulmonary Disease (COPD): No Hx Asthma: No Hx Emphysema: No Hx Sleep Apnea: Yes CPAP: Yes BIPAP: No Hx Respiratory Tract Infection/Cold (presently): No Result (for STOP score): Positive Hx Smoking: Yes (QUIT 30 YRS AGO) Smoking Status: Former smoker Gastrointestinal Controlled With Meds: Yes Hx Gastrointestinal Disorders: Yes (DIVERTICULTIIS 15 YRS AGO) Hx Gastrointestinal Bleed: No Hx Ulcer: No Hx Hiatal Hernia: No Difficulty Chewing/Swallowing: No Special diet followed at home: No Hx Unplanned Weight Loss of 20#: No HX Unplanned Weight Gain of 20#: No Neurological Hx Seizures: No HX Syncope/Blackout Spells/Unconsciousness: No Hx Transient Ischemic Attacks (TIA): No Hx Multiple Sclerosis: No Hx Parkinson's Disease: No Hx Head/Neck Injury: No Hx Headaches: No Hx Back Injury/Pain: No Recent Onset of Speech Difficulty: No Restless Legs: No Does patient have nerve stimulator: No Blood Disorder Hx Leukemia: No Bleeding Tendencies: No Hx Deep Vein Thrombosis: Yes (DVT LEG AFTER VEIN STRIPPING SURGERY) Hx High Cholesterol: No Blood Transmitted Disease: No Hx Hepatitis: No Hx Cirrhosis: No Hx Anemia: No Hx Blood Disorders: No Reproduction : No Genitourinary Hx Renal Disease: No Musculoskeletal Hx Arthritis: No Hx Rheumatoid Arthritis: No Hx Gout: No Recent Onset of an Orthopedic Problem: No Endocrine Hx Diabetes: No Thyroid Disease: No Hx Steroid Therapy: No Psycho/Social Hx Substance Use: No Hx Alcohol Use: Yes (DAILY WINE) Hx Anxiety: No Hx Depression: No Mental Illness: No Hx Dementia: No Miscellaneous Hx Cancer: No Recent Exposure to Contagious Disease: No Hx of C-Diff: No Any Loose Teeth: No (FULL SET OF DENTURES) Allergies No Known Allergies Allergy (Verified 12/04/24 07:43) Discharge Is Pt Admitted From a [facility], or a Care Home: No After D/C, Where Do you Plan to Go: Return Home From the [facility] History Number of Risk Factors: 2 Vital Signs Vital Signs Vital Signs: 12/04/24 07:44 12/04/24 07:44 12/04/24 08:21 Temperature 97.0 F L 97.0 F L Temperature Source Temporal Pulse Rate 58 L 58 L Respiratory Rate 18 18 Respiratory Pattern Normal Blood Pressure 126/88 H 126/88 H Blood Pressure Mean 100 Blood Pressure Source Monitor Blood Pressure Position Sitting Blood Pressure Location Left Arm Pulse Ox 98 98 Oxygen Delivery Method Room Air Room Air Weight Weight: 235 lb 0.204 oz Body Mass Index (BMI) 37.9 Physical Exam Const alert and oriented x3 HEENT normocephalic Eyes PERRL Resp normal respiratory effort and normal air movement Cardio regular rate and regular rhythm GI soft to palpation, non-tender and non-distended Extremity normal to inspection Assessment & Plan Assessment/Plan (1) Screen for colon cancer: PLAN: I explained endoscopy in detail to the patient. I explained the risks including but not limited to stroke or heart attack with anesthesia, perforation of the GI tract, bleeding, infection. I explained that any of these could necessitate further emergency surgery. The patient understands and all questions were answered sufficiently. The patient wishes to proceed with procedure. Jacky Fernández MD Pager: [facility] [address] [place] [address], [address] [place] [address] Office: Surgery Risks - Colonoscopy Risks Include but are not Limited To: Risks include but are not limited to: Bleeding, perforation requiring further surgery, inability to complete colonoscopy requiring barium enema.
--- NOTE | 2024-12-04 09:10 | OP.CCLET_ITS ---
12/04/2024 Patience Velazquez Re : Colonoscopy procedure for Johnathan Velazquez This procedure was performed on Wednesday, December 04, 2024. My impressions and recommendations are as follows: Impressions : - The entire examined colon is normal on direct and retroflexion views. - No specimens collected. Recommendations : - Discharge patient to home. - Resume previous diet. - Continue present medications. - Repeat colonoscopy in 5 years for surveillance. My findings are described in the full procedure note, which is enclosed. If I can be of further assistance, please feel free to contact me at Doctor phone number(s): , Work: . Sincerely, Jacky Fernández MD 12/04/2024 9:09:43 AM This report has been signed electronically.
--- NOTE | 2024-12-04 09:10 | OP.COLON_ITS ---
Patient Name: Johnathan Rodriguez Procedure Date: 12/04/2024 8:56 AM Date of : 1955 Age: 69 Procedure: Colonoscopy Indications: Screening for colorectal malignant neoplasm Providers: Jacky Fernández MD Medicines: Propofol per Anesthesia Patient Profile: This is a 69 year old male. Refer to note in patient chart for documentation of history and physical. Last Colonoscopy: none. The patient's first colonoscopy is today. Complications: No immediate complications. Procedure: Pre-Anesthesia Assessment: - Prior to the procedure, a History and Physical was performed, and patient medications and allergies were reviewed. The patient's tolerance of previous anesthesia was also reviewed. The risks and benefits of the procedure and the sedation options and risks were discussed with the patient. All questions were answered, and informed consent was obtained. Prior Anticoagulants: The patient has taken no anticoagulant or antiplatelet agents. After reviewing the risks and benefits, the patient was deemed in satisfactory condition to undergo the procedure. After I obtained informed consent, the scope was passed under direct vision. Throughout the procedure, the patient's blood pressure, pulse, and oxygen saturations were monitored continuously. The Colonoscope was introduced through the anus and advanced to the cecum, identified by appendiceal orifice and ileocecal valve. The colonoscopy was performed without difficulty. The patient tolerated the procedure well. The quality of the bowel preparation was good. The ileocecal valve, appendiceal orifice, and rectum were photographed. Scope In: 8:58:35 AM Scope Withdrawal Time 0 hours 6 minutes 4 seconds Scope Out: 9:07:31 AM Total Procedure Duration Time 0 hours 8 minutes 56 seconds Findings: The entire examined colon appeared normal on direct and retroflexion views. Impression: - The entire examined colon is normal on direct and retroflexion views. - No specimens collected. Recommendation: - Discharge patient to home. - Resume previous diet. - Continue present medications. - Repeat colonoscopy in 5 years for surveillance. Procedure Code(s): --- Professional --- 15923, Colonoscopy, flexible; diagnostic, including collection of specimen(s) by brushing or washing, when performed (separate procedure) Diagnosis Code(s): --- Professional --- Z12.11, Encounter for screening for malignant neoplasm of colon CPT copyright 2021 [employer]. All rights reserved. The codes documented in this report are preliminary and upon professional fee coder review may be revised to meet current compliance requirements. Jacky Fernández MD 12/04/2024 9:09:43 AM This report has been signed electronically. Number of Addenda: 0 Note Initiated On: 12/04/2024 8:56 AM
--- NOTE | 2024-12-04 09:16 | PCM.POST.ANE ---
Anesthesia: Postop Eval I Current Vital Signs Temperature: 97.1 F Pulse Rate: 60 Blood Pressure: 118/64 Respiratory Rate: 16 Pulse Ox: 94 Oxygen Delivery Method: Room Air Assessment Airway patent: Yes Spontaneous unlabored respirations: Yes Mental status: Awake and Calm nausea: No Vomiting: No Anesthesia Complication: No Fluid Hydration Crystalloid volume administer (ml): 500 Total IV fluid infused: 500 Progress Note Anesthesia document: Postop Eval 1 completed: Yes
--- NOTE | 2024-12-04 14:00 | PCM.POSTANE2 ---
Anesthesia Postop Eval I Sum Postop Eval Completion status Anesthesia document: Postop Eval 1 completed: Yes Anesthesia Postop Eval I Summary Anesthesia Postop Eval I Summary: Anesthesia Postop Eval I: Assessment Summary Airway patent Yes 12/04/24 09:17 [email or web address] Spontaneous unlabored Yes 12/04/24 09:17 [email or web address] respirations Mental status Awake,Calm 12/04/24 09:17 [email or web address] nausea No 12/04/24 09:17 [email or web address] Vomiting No 12/04/24 09:17 [email or web address] Anesthesia Postop Eval I: Fluid Summary Crystalloid volume administer 500 12/04/24 09:17 [email or web address] (ml) Colloids volume administered ( ml) Blood Product volume administered (ml) Total IV fluid infused 500 12/04/24 09:17 [email or web address] Anesthesia Postop Eval I: Summary Notes Anesthesia Complication No 12/04/24 09:17 [email or web address] Anesthesia Complication Comment: Post-operative progress note Anesthesia: Postop Eval II Evaluation Mental status: Awake and Calm Pain Level: 0 nausea: No Vomiting: No Complications Anesthesia Complication: No
== END 2024-12-04 09:52 | disposition home or self-care (01) ==
LOC: EN 07:17 → AC 07:18
PROVIDERS: PCP Physician Assistant; Referring Provider Physician Assistant; Visit Provider Surgery
PROC: 0DJD8ZZ Inspection of Lower Intestinal Tract, Via Natural or Artificial Opening Endoscopic (ICD-10-PCS; CPT 45378; principal; 2024-12-04 08:25)
DX: Z12.11 Encounter for screening for malignant neoplasm of colon (principal); E11.9 Type 2 diabetes mellitus without complications; K21.9 Gastro-esophageal reflux disease without esophagitis; Z87.891 Personal history of nicotine dependence; Z79.82 Long term (current) use of aspirin; Z79.84 Long term (current) use of oral hypoglycemic drugs; Z80.0 Family history of malignant neoplasm of digestive organs; Z79.899 Other long term (current) drug therapy
CPT/HCPCS: G0121; 82962; J2405